=== PATIENT | female | born 1930 | race Caucasian/White ===

== ENCOUNTER 2020-04-10 10:11 | Inpatient (IN) | payer MEDICARE, BC ==
[2020-04-10] MEDS ORDERED: Sodium Chloride 0.9% 10 ML Syringe FLUSH PRN (10:21)
--- NOTE | 2020-04-10 10:42 | CT ---
Head CT Technique: Multiple axial sections through the brain were obtained. Intravenous contrast was not utilized. Comparison: No prior intracranial imaging is available. Findings: Ventricles along with basal cisterns and sulci over the convexities are mildly prominent. Diminished density is noted within the periventricular and subcortical white matter which is felt to represent small vessel ischemic demyelination change. Minimal basal ganglia calcification is seen. No other abnormal parenchymal densities are seen. No evidence of intracranial hemorrhage. No midline shift or mass effect is seen. Atherosclerotic calcification is seen within the carotid siphon. Nothing acute is seen within the visualized paranasal sinuses. Visualized mastoid sinuses also show nothing acute. No acute calvarial abnormality is appreciated. Impression: 1. Senescent change as noted above. 2. Nothing acute is appreciated on noncontrast head CT exam. Diagnostic code #2 Study was dictated in MDT
--- NOTE | 2020-04-10 10:44 | EDM.PDOC ---
ED HPI GENERAL MEDICAL PROBLEM - General Chief Complaint: Neuro Symptoms/Deficits Stated Complaint: AMBULANCE Time Seen by Provider: 04/10/20 10:21 Source of Information: Reports: Patient, EMS, Family History Limitations: Reports: No Limitations - History of Present Illness INITIAL COMMENTS - FREE TEXT/NARRATIVE: The patient presents by [facility] for a fall. The patient was found by a neighbor laying face down on the floor this morning. She called 911 for help. Her last time known well was 9:30am yesterday. She has abrasions to her face, left shoulder, knees and buttocks. She says she does not hurt anywhere. She has no headache, chest pain, or abdominal pain. She has no fever, chills, cough, congestion or runny nose. She does admit to having some shortness of breath but her oxygen saturations are good at 96%. She has no hip pain. She says she had trouble getting out of her chair and fell to the ground. She did not hit her head or hurt her neck. Her daughter came into the room and she said her mother has trouble getting around even with a walker. This was just a matter of time. Onset: Sudden Duration: Day(s): (yesterday at 9:30am) Improves with: Reports: None Worsens with: Reports: None Associated Symptoms: Reports: Shortness of Breath. Denies: Chest Pain, Cough, Fever/Chills, Headaches, Nausea/Vomiting - Related Data Allergies Allergy/AdvReac Type Severity Reaction Status Date / Time meperidine HCl [From Demerol] Allergy Other Verified 04/10/20 10:34 Home Meds: Home Meds Bilberry 100 mg PO DAILY 09/18/15 [History] Cranberry 500 mg PO DAILY 09/18/15 [History] Lactobacillus Acidophilus [Acidophilus] 1 cap PO DAILY 09/18/15 [History] Meloxicam 7.5 mg PO DAILY #10 tablet 09/18/15 [Rx] Vitamin E 400 units PO DAILY 09/18/15 [History] ED ROS GENERAL - Review of Systems Review Of Systems: See Below Constitutional: Reports: No Symptoms HEENT: Reports: Other (abrasions to her chin) Respiratory: Reports: Shortness of Breath. Denies: Cough Cardiovascular: Reports: No Symptoms Endocrine: Reports: No Symptoms GI/Abdominal: Reports: No Symptoms : Reports: No Symptoms Musculoskeletal: Reports: Other (abrasions to her left shoulder and knees) ED EXAM, NEURO - Physical Exam Exam: See Below Exam Limited By: No Limitations General Appearance: Alert, No Apparent Distress Ears: Normal External Exam Nose: Normal Inspection Head Exam: Other (abrasions to her chin) Neck: Normal Inspection, Supple, Non-Tender Respiratory/Chest: No Respiratory Distress, Lungs Clear, Normal Breath Sounds Cardiovascular: Regular Rate, Rhythm, No Edema, No Murmur GI/Abdominal: Soft, Non-Tender, No Organomegaly, No Mass Neurological: Alert, Oriented x 3, Other (Generalized weakness and possible mild weakness to her left arm and leg) EKG INTERPRETATION EKG Date: 04/10/20 Time: 11:28 Rhythm: NSR Rate (Beats/Min): 91 [place]: Normal P-Wave: Present QRS: Normal ST-T: Normal QT: Normal Course - Vital Signs Last Recorded V/S: Last Vital Signs Temp 98.3 F 04/10/20 10:23 Pulse 98 04/10/20 10:23 Resp 18 04/10/20 10:23 BP 136/73 04/10/20 10:23 Pulse Ox 98 04/10/20 10:23 - Orders/Labs/Meds Orders: Active Orders 24 hr Category Date Time Status Cardiac Monitoring [RC] . DIRECTED Care 04/10/20 10:21 Active EKG Documentation Completion [RC] STAT Care 04/10/20 10:22 Active Peripheral IV Care [RC] . DIRECTED Care 04/10/20 10:22 Active Urinary Catheter Assessment [RC] ASDIRECTED Care 04/10/20 11:57 Active Urinary Catheter Insertion [Insert Urinary Catheter] [ Care 04/10/20 11:50 Ordered OM.PC] Stat CORONAVIRUS COVID-19 PCR PHL Stat Lab 04/10/20 10:39 Ordered Sodium Chloride 0.9% [Normal Saline] 1,000 ml Med 04/10/20 10:30 Active IV .BOLUS Sodium Chloride 0.9% [Saline Flush] Med 04/10/20 10:21 Active 10 ml FLUSH ASDIRECTED PRN Peripheral IV Insertion Adult [OM.PC] Stat Oth 04/10/20 10:21 Ordered Medication Orders Sodium Chloride (Normal Saline) 1,000 mls @ 1,000 mls/hr IV .BOLUS MELANIA Last Admin: 04/10/20 11:08 Dose: 1,000 mls/hr Documented by: LORETTA Sodium Chloride (Saline Flush) 10 ml FLUSH ASDIRECTED PRN PRN Reason: Keep Vein Open Last Admin: 04/10/20 11:08 Dose: 10 ml Documented by: LORETTA Labs: Laboratory Tests 04/10/20 04/10/20 04/10/20 Range/Units 10:19 10:55 10:55 WBC 20.55 H (3.98-10.04) K/mm3 RBC 4.57 (3.98-5.22) M/mm3 Hgb 13.4 (11.2-15.7) gm/dl Hct 41.2 (34.1-44.9) % MCV 90.2 (79.4-94.8) fl MCH 29.3 (25.6-32.2) pg MCHC 32.5 (32.2-35.5) g/dl RDW Std Deviation 48.3 H (36.4-46.3) fL Plt Count 47 L (182-369) K/mm3 MPV TNP Neut % (Auto) 87.6 H (34.0-71.1) % Lymph % (Auto) 3.3 L (19.3-51.7) % Graham % (Auto) 8.8 (4.7-12.5) % Eos % (Auto) 0 L (0.7-5.8) Baso % (Auto) 0.1 (0.1-1.2) % Neut # (Auto) 18.00 H (1.56-6.13) K/mm3 Lymph # (Auto) 0.68 L (1.18-3.74) K/mm3 Graham # (Auto) 1.80 H (0.24-0.36) K/mm3 Eos # (Auto) 0.00 L (0.04-0.36) K/mm3 Baso # (Auto) 0.02 (0.01-0.08) K/mm3 Manual Slide Review Abnormal smear Sodium 143 (136-145) mEq/L Potassium 3.8 (3.5-5.1) mEq/L Chloride 106 (98-107) mEq/L Carbon Dioxide 23 (21-32) mEq/L Anion Gap 17.8 H (5-15) BUN 26 H (7-18) mg/dL Creatinine 1.5 H (0.55-1.02) mg/dL Est Cr Clr Drug Dosing 20.11 mL/min Estimated GFR (MDRD) 33 (>60) mL/min BUN/Creatinine Ratio 17.3 (14-18) Glucose 141 H (83-115) mg/dL POC Glucose 147 H (83-110) mg/dL Calcium 10.1 (8.5-10.1) mg/dL Total Bilirubin 0.7 (0.2-1.0) mg/dL AST 85 H (15-37) U/L ALT 43 (14-59) U/L Alkaline Phosphatase 88 (46-116) U/L Creatine Kinase (26-192) U/L Troponin I 0.191 H* (0.00-0.056) ng/mL Total Protein 7.6 (6.4-8.2) g/dl Albumin 3.6 (3.4-5.0) g/dl Globulin 4.0 gm/dL Albumin/Globulin Ratio 0.9 L (1-2) Urine Color (Yellow) Urine Appearance (Clear) Urine pH (5.0-8.0) Ur Specific [place] (1.005-1.030) Urine Protein (Negative) Urine Glucose (UA) (Negative) Urine Ketones (Negative) Urine Occult Blood (Negative) Urine Nitrite (Negative) Urine Bilirubin (Negative) Urine Urobilinogen (0.2-1.0) Ur Leukocyte Esterase (Negative) U Hyaline Cast (Auto) (0-5) /lpf Urine RBC (0-5) /hpf Urine WBC (0-5) /hpf Ur Squamous Epith Cells (0-5) /hpf Urine Bacteria (FEW) /hpf Urine Mucus (FEW) /hpf 04/10/20 04/10/20 04/10/20 Range/Units 10:55 11:47 13:45 WBC (3.98-10.04) K/mm3 RBC (3.98-5.22) M/mm3 Hgb (11.2-15.7) gm/dl Hct (34.1-44.9) % MCV (79.4-94.8) fl MCH (25.6-32.2) pg MCHC (32.2-35.5) g/dl RDW Std Deviation (36.4-46.3) fL Plt Count (182-369) K/mm3 MPV Neut % (Auto) (34.0-71.1) % Lymph % (Auto) (19.3-51.7) % Graham % (Auto) (4.7-12.5) % Eos % (Auto) (0.7-5.8) Baso % (Auto) (0.1-1.2) % Neut # (Auto) (1.56-6.13) K/mm3 Lymph # (Auto) (1.18-3.74) K/mm3 [place] # (Auto) (0.24-0.36) K/mm3 Eos # (Auto) (0.04-0.36) K/mm3 Baso # (Auto) (0.01-0.08) K/mm3 Manual Slide Review Sodium (136-145) mEq/L Potassium (3.5-5.1) mEq/L Chloride (98-107) mEq/L Carbon Dioxide (21-32) mEq/L Anion Gap (5-15) BUN (7-18) mg/dL Creatinine (0.55-1.02) mg/dL Est Cr Clr Drug Dosing mL/min Estimated GFR (MDRD) (>60) mL/min BUN/Creatinine Ratio (14-18) Glucose (83-115) mg/dL POC Glucose (83-110) mg/dL Calcium (8.5-10.1) mg/dL Total Bilirubin (0.2-1.0) mg/dL AST (15-37) U/L ALT (14-59) U/L Alkaline Phosphatase (46-116) U/L Creatine Kinase 2357 H (26-192) U/L Troponin I 0.195 H* (0.00-0.056) ng/mL Total Protein (6.4-8.2) g/dl Albumin (3.4-5.0) g/dl Globulin gm/dL Albumin/Globulin Ratio (1-2) Urine Color Yellow (Yellow) Urine Appearance Clear (Clear) Urine pH 5.5 (5.0-8.0) Ur Specific [place] > or = 1.030 (1.005-1.030) Urine Protein 1+ H (Negative) Urine Glucose (UA) Negative (Negative) Urine Ketones 2+ H (Negative) Urine Occult Blood Negative (Negative) Urine Nitrite Negative (Negative) Urine Bilirubin Negative (Negative) Urine Urobilinogen 0.2 (0.2-1.0) Ur Leukocyte Esterase Negative (Negative) U Hyaline Cast (Auto) 5-10 H (0-5) /lpf Urine RBC Not seen (0-5) /hpf Urine WBC 0-5 (0-5) /hpf Ur Squamous Epith Cells 0-5 (0-5) /hpf Urine Bacteria Few (FEW) /hpf Urine Mucus Few (FEW) /hpf Meds: Medications Generic Name Dose Route Start Last Admin Trade Name Freq PRN Reason Stop Dose Admin Sodium Chloride 1,000 mls @ 1,000 mls/hr 04/10/20 10:30 04/10/20 11:08 Normal Saline IV 1,000 mls/hr .BOLUS MELANIA Administration Sodium Chloride 10 ml 04/10/20 10:21 04/10/20 11:08 Saline Flush FLUSH 10 ml ASDIRECTED PRN Administration Keep Vein Open - Re-Assessments/Exams Free Text/Narrative Re-Assessment/Exam: 04/10/20 10:47 A stroke alert was called. Her last time known well was 9:30am yesterday. I ordered a CT of her head, EKG, labs and UA. 04/10/20 12:20 Her EKG shows a NSR with no acute changes. Her CT shows senescent change. Nothing acute is appreciated on noncontrast head CT exam. Her WBC was elevated at 20.55. Her anion gap was elevated 17.8. Her creatinine is elevated at 1.5. Her glucose is elevated at 141. Her troponin was elevated at 0.191. Her UA shows no UTI. I feel she needs to be admitted. I called Dr Chairez and he wanted me to recheck a troponin at 3 hours and if it goes up we will call cardiology. If it goes down we will keep her here. I have ordered a CXR because she has been bringing up some phlegm but not coughing. I will also give her some food after a swallow study. 04/10/20 14:14 Her repeat troponin was relatively the same at 0.195. Her CK was also elevated at 2357. I called Dr Chairez and he agreed to the admission. Departure - Departure Time of Disposition: 14:20 Disposition: Admitted As Inpatient 66 Condition: Good Clinical Impression: Failure to thrive in adult, Generalized weakness, Elevated troponin, Multiple abrasions Fall Qualifiers: Encounter type: initial encounter Qualified Code(s): W19.XXXA - Unspecified fall, initial encounter Rhabdomyolysis Qualifiers: Rhabdomyolysis type: traumatic Encounter type: initial encounter Qualified Code(s): T79.6XXA - Traumatic ischemia of muscle, initial encounter - Discharge Information Referrals: PCP,None [Ordering Only Provider] - Forms: ED Department Discharge Sepsis Event Note (ED) - Evaluation Sepsis Screening Result: No Definite Risk - Focused Exam Vital Signs: Vital Signs Temp Pulse Resp BP Pulse Ox 04/10/20 10:23 98.3 F 98 18 136/73 98 - My Orders Last 24 Hours: My Active Orders 04/10/20 10:21 Cardiac Monitoring [RC] . DIRECTED Sodium Chloride 0.9% [Saline Flush] 10 ml FLUSH ASDIRECTED PRN Peripheral IV Insertion Adult [OM.PC] Stat 04/10/20 10:22 EKG Documentation Completion [RC] STAT Peripheral IV Care [RC] . DIRECTED 04/10/20 10:30 Sodium Chloride 0.9% [Normal Saline] 1,000 ml IV .BOLUS 04/10/20 10:39 CORONAVIRUS COVID-19 PCR PHL Stat 04/10/20 11:50 Urinary Catheter Insertion [Insert Urinary Catheter] [OM.PC] Stat 04/10/20 11:57 Urinary Catheter Assessment [RC] ASDIRECTED - Assessment/Plan Last 24 Hours: My Active Orders 04/10/20 10:21 Cardiac Monitoring [RC] . DIRECTED Sodium Chloride 0.9% [Saline Flush] 10 ml FLUSH ASDIRECTED PRN Peripheral IV Insertion Adult [OM.PC] Stat 04/10/20 10:22 EKG Documentation Completion [RC] STAT Peripheral IV Care [RC] . DIRECTED 04/10/20 10:30 Sodium Chloride 0.9% [Normal Saline] 1,000 ml IV .BOLUS 04/10/20 10:39 CORONAVIRUS COVID-19 PCR PHL Stat 04/10/20 11:50 Urinary Catheter Insertion [Insert Urinary Catheter] [OM.PC] Stat 04/10/20 11:57 Urinary Catheter Assessment [RC] ASDIRECTED
[2020-04-10] MEDS: Sodium Chloride 0.9% 1,000 ML IV SCH ×3 (11:08→18:02)
--- NOTE | 2020-04-10 13:16 | CR ---
Chest: AP view of the chest was obtained. Comparison: No previous chest imaging is available. Heart size and mediastinum are normal. Lungs are clear with no acute parenchymal change. Prior right shoulder surgery is noted. Mild scoliosis is present within the spine. Impression: 1. Nothing acute is seen on AP chest x-ray. Diagnostic code #2 Study was dictated in MDT
[2020-04-10] MEDS ORDERED: Ondansetron 4 MG/2 ML SDV IV PRN (17:35)
--- NOTE | 2020-04-10 17:57 | PCM.HP.2 ---
H&P History of Present Illness - General Date of Service: 04/10/20 Admit Problem/Dx: Admission Diagnosis/Problem Admission Diagnosis/Problem Failure to thrive - History of Present Illness Initial Comments - Free Text/Narative: 89-year-old female who lives alone was found by a neighbor lying face down the floor this morning. Patient is a poor historian and family was not available when I interviewed the patient so most of the history was obtained through the emergency department physician, nursing, and the patient. Patient's last known well was at 9:30 AM yesterday morning. Patient states that she slid off of her recliner and did not actually fall. Her face/chin, left shoulder, knees, and buttocks had abrasions and bruising to her left wrist. Patient tells me she has no pain at this time. She was brought into the EMS after her neighbor called 911. On arrival to the emergency department oxygen saturations were 96%, and she denied hitting her head. Patient had a CT scan of her head and chest x-ray which were both without acute findings. Daughter does state that she has some limitations in her memory and recall. Patient denies any fever, chills, chest pain, shortness of breath, nausea, or vomiting. In the emergency department vital signs were relatively normal with a blood pressure of 136/73, pulse of 98, temperature 98.3, respiratory rate of 18, pulse ox of 98%. Patient was found to have abrasions to her chin and generalized weakness and possible mild weakness to her left arm and leg. A stroke alert was called. EKG showed normal sinus rhythm with ventricular rate of 91 bpm with no significant abnormalities. Labs in the emergency department: White count 20.55 with 87.6% neutrophils and no bands, peripheral smear showed normal red blood cells with leukocytosis and low platelets, hemoglobin 13.4, platelet count 47. Sodium was 143, potassium of 3.8, anion gap 17.8, BUN 26, creatinine 1.5 with estimated GFR 33. Initial troponin was 0.191 with a repeat of 0.195. AST was 85, ALT 43, alkaline phosphatase 88. CK 2357, UA negative occult blood and no red blood cells. Nega tive WBC. COVID negative. Patient was given 1 L of normal saline then transferred to the floor. - Related Data Allergies/Adverse Reactions: Allergies Allergy/AdvReac Type Severity Reaction Status Date / Time meperidine HCl [From Demerol] Allergy Other Verified 04/10/20 10:34 Home Medications: Home Meds Vitamin E 400 units PO DAILY 09/18/15 [History] Aspirin [Children's Aspirin] 81 mg PO DAILY 04/10/20 [History] Cyanocobalamin (Vitamin B-12) [B-12] 1,000 mcg PO DAILY 04/10/20 [History] Gabapentin [Neurontin] 300 mg PO DAILY 04/10/20 [History] Ibuprofen [Motrin] 1 tab PO Q4HR PRN 04/10/20 [History] Lysine HCl [l-Lysine] mg PO DAILY 04/10/20 [History] Vit A/Vit C/Vit E/Zinc/Copper [Preservision Areds Softgel] 1 cap PO DAILY 04/10/20 [History] amLODIPine [Norvasc] mg PO DAILY 04/10/20 [History] Past Medical History HEENT History: Reports: Cataract, Hard of Hearing, Impaired Vision, Macular Degeneration Cardiovascular History: Reports: Hypertension [employer]PO[employer]ING [employer] History: Reports: Musculoskeletal History: Reports: Arthritis, Back Pain, Chronic Neurological History: Reports: Migraines Psychiatric History: Reports: Anxiety Hematologic History: Reports: Other (See Below) Other Hematologic History: thrombocytopenia Dermatologic History: Reports: Eczema - Infectious Disease History Infectious Disease History: Reports: Chicken Pox - Past Surgical History HEENT Surgical History: Reports: Cataract Surgery, Tonsillectomy Female Surgical History: Reports: Hysterectomy Musculoskeletal Surgical History: Reports: Shoulder Surgery Social & Family History - Family History Family Medical History: Noncontributory - Tobacco Use Smoking Status *Q: Never Smoker - Caffeine Use Caffeine Use: Reports: Coffee Other Caffeine Use: 1 cup a day - Recreational Drug Use Recreational Drug Use: No H&P Review of Systems - Review of Systems: Review Of Systems: Comprehensive ROS is negative, except as noted in HPI. Exam - Exam Exam: See Below - Vital Signs Vital Signs: Last Vital Signs Temp 98.4 F 04/10/20 16:18 Pulse 104 H 04/10/20 16:18 Resp 20 04/10/20 16:18 BP 121/89 04/10/20 16:18 Pulse Ox 97 04/10/20 16:18 Weight: 52.98 kg - Exam General: Alert, Oriented, 4 HEENT: Conjunctiva Clear, Mucosa Moist & [place]. No: Hearing Intact (Hearing loss) Neck: Supple, Trachea Midline, 2 Lungs: Normal Respiratory Effort, Other (Upper airway rhonchi making auscultation difficult). No: Rales, Wheezing Cardiovascular: Regular Rate, Regular Rhythm GI/Abdominal Exam: Normal Bowel Sounds, Soft, Non-Tender, No Organomegaly, No Distention, No Abnormal Bruit Extremities: Normal Inspection, Normal Range of Motion, Non-Tender, No Pedal Edema, Normal Capillary Refill, Other (Bruising to left wrist) Skin: Warm, Dry, Intact, Other (Abrasion to the chin, left shoulder) Neurological: Cranial Nerves Intact, Strength Equal Bilateral (No significant difference but diminished bilaterally slip cover cutter strength) Neuro Extensive - Mental Status: Alert, Normal Mood/Affect, Memory Loss-Recent Events Psychiatric: Alert, Normal Affect, Normal Mood - Patient Data Lab Results Last 24 hrs: Laboratory Results - last 24 hr 04/10/20 04/10/20 04/10/20 Range/Units 10:19 10:55 10:55 WBC 20.55 H (3.98-10.04) K/mm3 RBC 4.57 (3.98-5.22) M/mm3 Hgb 13.4 (11.2-15.7) gm/dl Hct 41.2 (34.1-44.9) % MCV 90.2 (79.4-94.8) fl MCH 29.3 (25.6-32.2) pg MCHC 32.5 (32.2-35.5) g/dl RDW Std Deviation 48.3 H (36.4-46.3) fL Plt Count 47 L (182-369) K/mm3 MPV TNP Neut % (Auto) 87.6 H (34.0-71.1) % Lymph % (Auto) 3.3 L (19.3-51.7) % [place] % (Auto) 8.8 (4.7-12.5) % Eos % (Auto) 0 L (0.7-5.8) Baso % (Auto) 0.1 (0.1-1.2) % Neut # (Auto) 18.00 H (1.56-6.13) K/mm3 Lymph # (Auto) 0.68 L (1.18-3.74) K/mm3 [place] # (Auto) 1.80 H (0.24-0.36) K/mm3 Eos # (Auto) 0.00 L (0.04-0.36) K/mm3 Baso # (Auto) 0.02 (0.01-0.08) K/mm3 Manual Slide Review Abnormal smear Sodium 143 (136-145) mEq/L Potassium 3.8 (3.5-5.1) mEq/L Chloride 106 (98-107) mEq/L Carbon Dioxide 23 (21-32) mEq/L Anion Gap 17.8 H (5-15) BUN 26 H (7-18) mg/dL Creatinine 1.5 H (0.55-1.02) mg/dL Est Cr Clr Drug Dosing 20.11 mL/min Estimated GFR (MDRD) 33 (>60) mL/min BUN/Creatinine Ratio 17.3 (14-18) Glucose 141 H (83-115) mg/dL POC Glucose 147 H (83-110) mg/dL Calcium 10.1 (8.5-10.1) mg/dL Total Bilirubin 0.7 (0.2-1.0) mg/dL AST 85 H (15-37) U/L ALT 43 (14-59) U/L Alkaline Phosphatase 88 (46-116) U/L Creatine Kinase (26-192) U/L Troponin I 0.191 H* (0.00-0.056) ng/mL Total Protein 7.6 (6.4-8.2) g/dl Albumin 3.6 (3.4-5.0) g/dl Globulin 4.0 gm/dL Albumin/Globulin Ratio 0.9 L (1-2) Urine Color (Yellow) Urine Appearance (Clear) Urine pH (5.0-8.0) Ur Specific [place] (1.005-1.030) Urine Protein (Negative) Urine Glucose (UA) (Negative) Urine Ketones (Negative) Urine Occult Blood (Negative) Urine Nitrite (Negative) Urine Bilirubin (Negative) Urine Urobilinogen (0.2-1.0) Ur Leukocyte Esterase (Negative) U Hyaline Cast (Auto) (0-5) /lpf Urine RBC (0-5) /hpf Urine WBC (0-5) /hpf Ur Squamous Epith Cells (0-5) /hpf Urine Bacteria (FEW) /hpf Urine Mucus (FEW) /hpf SARS Virus RNA (PCR) (NEGATIVE) 04/10/20 04/10/20 04/10/20 Range/Units 10:55 11:47 13:45 WBC (3.98-10.04) K/mm3 RBC (3.98-5.22) M/mm3 Hgb (11.2-15.7) gm/dl Hct (34.1-44.9) % MCV (79.4-94.8) fl MCH (25.6-32.2) pg MCHC (32.2-35.5) g/dl RDW Std Deviation (36.4-46.3) fL Plt Count (182-369) K/mm3 MPV Neut % (Auto) (34.0-71.1) % Lymph % (Auto) (19.3-51.7) % [place] % (Auto) (4.7-12.5) % Eos % (Auto) (0.7-5.8) Baso % (Auto) (0.1-1.2) % Neut # (Auto) (1.56-6.13) K/mm3 Lymph # (Auto) (1.18-3.74) K/mm3 [place] # (Auto) (0.24-0.36) K/mm3 Eos # (Auto) (0.04-0.36) K/mm3 Baso # (Auto) (0.01-0.08) K/mm3 Manual Slide Review Sodium (136-145) mEq/L Potassium (3.5-5.1) mEq/L Chloride (98-107) mEq/L Carbon Dioxide (21-32) mEq/L Anion Gap (5-15) BUN (7-18) mg/dL Creatinine (0.55-1.02) mg/dL Est Cr Clr Drug Dosing mL/min Estimated GFR (MDRD) (>60) mL/min BUN/Creatinine Ratio (14-18) Glucose (83-115) mg/dL POC Glucose (83-110) mg/dL Calcium (8.5-10.1) mg/dL Total Bilirubin (0.2-1.0) mg/dL AST (15-37) U/L ALT (14-59) U/L Alkaline Phosphatase (46-116) U/L Creatine Kinase 2357 H (26-192) U/L Troponin I 0.195 H* (0.00-0.056) ng/mL Total Protein (6.4-8.2) g/dl Albumin (3.4-5.0) g/dl Globulin gm/dL Albumin/Globulin Ratio (1-2) Urine Color Yellow (Yellow) Urine Appearance Clear (Clear) Urine pH 5.5 (5.0-8.0) Ur Specific [place] > or = 1.030 (1.005-1.030) Urine Protein 1+ H (Negative) Urine Glucose (UA) Negative (Negative) Urine Ketones 2+ H (Negative) Urine Occult Blood Negative (Negative) Urine Nitrite Negative (Negative) Urine Bilirubin Negative (Negative) Urine Urobilinogen 0.2 (0.2-1.0) Ur Leukocyte Esterase Negative (Negative) U Hyaline Cast (Auto) 5-10 H (0-5) /lpf Urine RBC Not seen (0-5) /hpf Urine WBC 0-5 (0-5) /hpf Ur Squamous Epith Cells 0-5 (0-5) /hpf Urine Bacteria Few (FEW) /hpf Urine Mucus Few (FEW) /hpf SARS Virus RNA (PCR) (NEGATIVE) 04/10/20 Range/Units 14:25 WBC (3.98-10.04) K/mm3 RBC (3.98-5.22) M/mm3 Hgb (11.2-15.7) gm/dl Hct (34.1-44.9) % MCV (79.4-94.8) fl MCH (25.6-32.2) pg MCHC (32.2-35.5) g/dl RDW Std Deviation (36.4-46.3) fL Plt Count (182-369) K/mm3 MPV Neut % (Auto) (34.0-71.1) % Lymph % (Auto) (19.3-51.7) % [place] % (Auto) (4.7-12.5) % Eos % (Auto) (0.7-5.8) Baso % (Auto) (0.1-1.2) % Neut # (Auto) (1.56-6.13) K/mm3 Lymph # (Auto) (1.18-3.74) K/mm3 [place] # (Auto) (0.24-0.36) K/mm3 Eos # (Auto) (0.04-0.36) K/mm3 Baso # (Auto) (0.01-0.08) K/mm3 Manual Slide Review Sodium (136-145) mEq/L Potassium (3.5-5.1) mEq/L Chloride (98-107) mEq/L Carbon Dioxide (21-32) mEq/L Anion Gap (5-15) BUN (7-18) mg/dL Creatinine (0.55-1.02) mg/dL Est Cr Clr Drug Dosing mL/min Estimated GFR (MDRD) (>60) mL/min BUN/Creatinine Ratio (14-18) Glucose (83-115) mg/dL POC Glucose (83-110) mg/dL Calcium (8.5-10.1) mg/dL Total Bilirubin (0.2-1.0) mg/dL AST (15-37) U/L ALT (14-59) U/L Alkaline Phosphatase (46-116) U/L Creatine Kinase (26-192) U/L Troponin I (0.00-0.056) ng/mL Total Protein (6.4-8.2) g/dl Albumin (3.4-5.0) g/dl Globulin gm/dL Albumin/Globulin Ratio (1-2) Urine Color (Yellow) Urine Appearance (Clear) Urine pH (5.0-8.0) Ur Specific [place] (1.005-1.030) Urine Protein (Negative) Urine Glucose (UA) (Negative) Urine Ketones (Negative) Urine Occult Blood (Negative) Urine Nitrite (Negative) Urine Bilirubin (Negative) Urine Urobilinogen (0.2-1.0) Ur Leukocyte Esterase (Negative) U Hyaline Cast (Auto) (0-5) /lpf Urine RBC (0-5) /hpf Urine WBC (0-5) /hpf Ur Squamous Epith Cells (0-5) /hpf Urine Bacteria (FEW) /hpf Urine Mucus (FEW) /hpf SARS Virus RNA (PCR) Negative (NEGATIVE) Result Diagrams: 04/10/20 10:55 04/10/20 10:55 Sepsis Event Note - Evaluation Sepsis Screening Result: No Definite Risk - Focused Exam Vital Signs: Vital Signs Temp Temp Pulse Pulse Resp BP BP 04/10/20 16:18 98.4 F 104 H 20 121/89 04/10/20 10:23 98.3 F 98 18 136/73 Pulse Ox 04/10/20 16:18 97 04/10/20 10:23 98 Date Exam was Performed: 04/10/20 Time Exam was Performed: 17:40 Problem List Initiated/Reviewed/Updated: Yes Orders Last 24hrs: Active Orders 24 hr Category Date Time Status Patient Status [ADT] Routine ADT 04/10/20 15:37 Active Antiembolic Devices [RC] PER UNIT ROUTINE Care 04/10/20 17:39 Ordered Cardiac Monitoring [RC] . DIRECTED Care 04/10/20 10:21 Active EKG Documentation Completion [RC] STAT Care 04/10/20 10:22 Active Oxygen Therapy [RC] PRN Care 04/10/20 17:37 Ordered Peripheral IV Care [RC] . DIRECTED Care 04/10/20 10:22 Active Up With Assistance [RC] ASDIRECTED Care 04/10/20 17:35 Ordered Urinary Catheter Assessment [RC] ASDIRECTED Care 04/10/20 11:57 Active Urinary Catheter Insertion [Insert Urinary Catheter] [ Care 04/10/20 11:50 Ordered OM.PC] Stat VTE/DVT Education [RC] PER UNIT ROUTINE Care 04/10/20 17:37 Ordered Vital Signs [RC] Q4H Care 04/10/20 17:37 Ordered OT Evaluation and Treatment [CONS] Routine Cons 04/10/20 17:35 Ordered PT Evaluation and Treatment [CONS] Routine Cons 04/10/20 17:35 Ordered Soft Diet [DIET] Diet 04/10/20 Dinner Active CBC WITH AUTO DIFF [HEME] AM Lab 04/11/20 05:11 Ordered COMPREHENSIVE METABOLIC PN,CMP [CHEM] AM Lab 04/11/20 05:11 Ordered CREATINE KINASE,CK [CHEM] AM Lab 04/11/20 05:11 Ordered D Dimer [D-DIMER QUANTITATIVE] [COAG] Stat Lab 04/10/20 13:45 Received FIBRINOGEN [COAG] Stat Lab 04/10/20 13:45 Received INR,PT,PROTHROMBIN TIME [COAG] Stat Lab 04/10/20 13:45 Received LACTATE DEHYDROGENASE,LDH [CHEM] Stat Lab 04/10/20 13:45 Received MAGNESIUM [CHEM] AM Lab 04/11/20 05:11 Ordered PHOSPHORUS [CHEM] AM Lab 04/11/20 05:11 Ordered PTT,PARTIAL THROMBOPLSTIN TIME [COAG] Stat Lab 04/10/20 13:45 Received Acetaminophen [Tylenol] Med 04/10/20 17:35 Ordered 650 mg PO Q4H PRN Docusate Sodium/Sennosides [Senna Plus] Med 04/10/20 17:35 Ordered 1 tab PO BID PRN Ondansetron [Zofran] Med 04/10/20 17:35 Ordered 4 mg IV Q4H PRN Sodium Chloride 0.9% [Normal Saline] 1,000 ml Med 04/10/20 10:30 Active IV .BOLUS Sodium Chloride 0.9% [Normal Saline] 1,000 ml Med 04/10/20 17:45 Ordered IV ASDIRECTED Sodium Chloride 0.9% [Saline Flush] Med 04/10/20 10:21 Active 10 ml FLUSH ASDIRECTED PRN Peripheral IV Insertion Adult [OM.PC] Stat Oth 04/10/20 10:21 Ordered Sequential Compression Device [OM.PC] Per Unit Routine Oth 04/10/20 17:37 Ordered Code Status [Resuscitation Status] Routine Resus Stat 04/10/20 17:27 Ordered Medication Orders Sodium Chloride (Normal Saline) 1,000 mls @ 1,000 mls/hr IV .BOLUS MELANIA Last Admin: 04/10/20 11:08 Dose: 1,000 mls/hr Documented by: LORETTA Sodium Chloride (Saline Flush) 10 ml FLUSH ASDIRECTED PRN PRN Reason: Keep Vein Open Last Admin: 04/10/20 11:08 Dose: 10 ml Documented by: LORETTA Assessment/Plan Comment:: Rhabdomyolysis secondary to immobilization from lying on the floor for unknown time Acute kidney injury Failure to thrive Thrombocytopenia, chronic * Patient was found on the ground at her home for unknown time but up to 24 hours. * Patient has known difficulty with ambulation and getting around at home * She has weakness on exam * Creatinine kinase 2357 * Troponin 0 0.191 and 0.195 * Urine negative for myoglobin * Received 1 L saline in the emergency department Plan * Admit to medical floor * Normal saline at 100 mL an hour * PT/OT * PT, APTT, d-dimer, LDH, fibrinogen * CBC, CMP, mag, [facility] in the morning Elevated troponin * No significant ST-T wave changes on EKG * Likely secondary to prolonged immobilization and strain * This still puts her at increased risk for mortality Plan * Repeat troponin * No anticoagulation secondary to fall and thrombocytopenia * Repeat EKG in the morning or if troponin is positive Hypertension * Unknown which medications she is currently on * Blood pressure well controlled on presentation with blood pressure of 136/73 and a repeat blood pressure of 121/89 Plan * Monitor blood pressure * Reconcile meds. Chronic back pain * This is likely worsening ambulation and function Plan * PT and OT VTE prophylaxis with SCDs secondary to chemoprophylaxis contraindicated secondary to thrombocytopenia CODE STATUS: DNR/DNI Disposition admit to medical floor. Patient will likely need assisted living or other living arrangements then living alone. - Mortality Measure Prognosis:: Good
[2020-04-10] MEDS: Acetaminophen 325 MG Tab PO PRN (20:54)
[2020-04-11] MEDS: Sodium Chloride 0.9% 1,000 ML IV SCH ×2 (03:29→13:19)
[2020-04-11] MEDS ORDERED: Potassium Chloride 20 MEQ Tab.ER PO ONE (07:39)
[2020-04-11] MEDS ORDERED: Magnesium Sulfate/Water 2 GM in Premix Bag 1 BAG IV ONE (10:30)
--- NOTE | 2020-04-11 14:28 | PCM.PN ---
- General Info Date of Service: 04/11/20 Admission Dx/Problem (Free Text): Admission Diagnosis/Problem Admission Diagnosis/Problem Failure to thrive Subjective Update: Patient states that she is doing well. She denies any pain. Patient has a history of thrombocytopenia. I spoke with the on-call provider for her provider Mary Villa NP and her last September 2019 her platelets were 28,000 and in November 2019 they were 39,000. Functional Status: Reports: Pain Controlled - Review of Systems General: Reports: No Symptoms HEENT: Reports: No Symptoms Pulmonary: Reports: No Symptoms Cardiovascular: Reports: No Symptoms Gastrointestinal: Reports: No Symptoms Musculoskeletal: Reports: No Symptoms Neurological: Reports: No Symptoms Psychiatric: Reports: No Symptoms - Patient Data Vitals - Most Recent: Last Vital Signs Temp 98.1 F 04/11/20 08:43 Pulse 97 04/11/20 08:43 Resp 16 04/11/20 08:43 BP 137/64 04/11/20 08:43 Pulse Ox 94 L 04/11/20 08:43 Weight - Most Recent: 55.066 kg I&O - Last 24 Hours: Intake & Output 04/10/20 04/11/20 04/11/20 22:59 06:59 14:59 Intake Total 240 1113 120 Output Total 600 Balance 240 513 120 Lab Results Last 24 Hours: Laboratory Results - last 24 hr 04/10/20 04/10/20 04/10/20 Range/Units 13:45 13:45 14:25 WBC (3.98-10.04) K/mm3 RBC (3.98-5.22) M/mm3 Hgb (11.2-15.7) gm/dl Hct (34.1-44.9) % MCV (79.4-94.8) fl MCH (25.6-32.2) pg MCHC (32.2-35.5) g/dl RDW Std Deviation (36.4-46.3) fL Plt Count (182-369) K/mm3 Neut % (Auto) (34.0-71.1) % Lymph % (Auto) (19.3-51.7) % [place] % (Auto) (4.7-12.5) % Eos % (Auto) (0.7-5.8) Baso % (Auto) (0.1-1.2) % Neut # (Auto) (1.56-6.13) K/mm3 Lymph # (Auto) (1.18-3.74) K/mm3 [place] # (Auto) (0.24-0.36) K/mm3 Eos # (Auto) (0.04-0.36) K/mm3 Baso # (Auto) (0.01-0.08) K/mm3 Neutrophils % (Manual) (40-60) % Band Neutrophils % (0-10) % Lymphocytes % (Manual) (20-40) % Atypical Lymphs % % Monocytes % (Manual) (2-10) % Eosinophils % (Manual) (0.7-5.8) % Basophils % (Manual) (0.1-1.2) Manual Slide Review Toxic Granulation Platelet Estimate Plt Morphology Comment Hypochromasia RBC Morph Comment PT 10.9 (9.7-12.0) SECONDS INR 1.00 APTT 24 (22-31) SECONDS Fibrinogen 424 (187-446) mg/dL D-Dimer, Quantitative 1.14 H (0.19-0.50) mg/L Sodium (136-145) mEq/L Potassium (3.5-5.1) mEq/L Chloride (98-107) mEq/L Carbon Dioxide (21-32) mEq/L Anion Gap (5-15) BUN (7-18) mg/dL Creatinine (0.55-1.02) mg/dL Est Cr Clr Drug Dosing mL/min Estimated GFR (MDRD) (>60) mL/min BUN/Creatinine Ratio (14-18) Glucose (83-115) mg/dL Calcium (8.5-10.1) mg/dL Phosphorus (2.6-4.7) mg/dL Magnesium (1.8-2.4) mg/dl Total Bilirubin (0.2-1.0) mg/dL AST (15-37) U/L ALT (14-59) U/L Alkaline Phosphatase (46-116) U/L Lactate Dehydrogenase 428 H (81-234) U/L Creatine Kinase (26-192) U/L Troponin I (0.00-0.056) ng/mL Total Protein (6.4-8.2) g/dl Albumin (3.4-5.0) g/dl Globulin gm/dL Albumin/Globulin Ratio (1-2) Vitamin B12 (193-986) pg/ml Folate (8.6-58.9) ng/mL TSH 3rd Generation (0.358-3.74) uIU/mL Hepatitis C Antibody (NEGATIVE) SARS Virus RNA (PCR) Negative (NEGATIVE) 04/10/20 04/11/20 04/11/20 Range/Units 18:40 05:07 05:07 WBC 20.37 H (3.98-10.04) K/mm3 RBC 3.86 L (3.98-5.22) M/mm3 Hgb 11.4 D (11.2-15.7) gm/dl Hct 35.1 (34.1-44.9) % MCV 90.9 (79.4-94.8) fl MCH 29.5 (25.6-32.2) pg MCHC 32.5 (32.2-35.5) g/dl RDW Std Deviation 49.1 H (36.4-46.3) fL Plt Count 16 L* (182-369) K/mm3 Neut % (Auto) 85.1 H (34.0-71.1) % Lymph % (Auto) 6.3 L (19.3-51.7) % [place] % (Auto) 8.2 (4.7-12.5) % Eos % (Auto) 0 L (0.7-5.8) Baso % (Auto) 0.1 (0.1-1.2) % Neut # (Auto) 17.33 H (1.56-6.13) K/mm3 Lymph # (Auto) 1.28 (1.18-3.74) K/mm3 [place] # (Auto) 1.67 H (0.24-0.36) K/mm3 Eos # (Auto) 0.01 L (0.04-0.36) K/mm3 Baso # (Auto) 0.02 (0.01-0.08) K/mm3 Neutrophils % (Manual) (40-60) % Band Neutrophils % (0-10) % Lymphocytes % (Manual) (20-40) % Atypical Lymphs % % Monocytes % (Manual) (2-10) % Eosinophils % (Manual) (0.7-5.8) % Basophils % (Manual) (0.1-1.2) Manual Slide Review Abnormal smear Toxic Granulation Platelet Estimate Plt Morphology Comment Hypochromasia RBC Morph Comment PT (9.7-12.0) SECONDS INR APTT (22-31) SECONDS Fibrinogen (187-446) mg/dL D-Dimer, Quantitative (0.19-0.50) mg/L Sodium 144 (136-145) mEq/L Potassium 3.2 L (3.5-5.1) mEq/L Chloride 109 H (98-107) mEq/L Carbon Dioxide 23 (21-32) mEq/L Anion Gap 15.2 H (5-15) BUN 22 H (7-18) mg/dL Creatinine 0.8 (0.55-1.02) mg/dL Est Cr Clr Drug Dosing 39.44 mL/min Estimated GFR (MDRD) > 60 (>60) mL/min BUN/Creatinine Ratio 27.5 H (14-18) Glucose 111 (83-115) mg/dL Calcium 8.7 (8.5-10.1) mg/dL Phosphorus 2.0 L (2.6-4.7) mg/dL Magnesium 1.7 L (1.8-2.4) mg/dl Total Bilirubin 0.7 (0.2-1.0) mg/dL AST 98 H (15-37) U/L ALT 50 (14-59) U/L Alkaline Phosphatase 67 (46-116) U/L Lactate Dehydrogenase (81-234) U/L Creatine Kinase 1955 H (26-192) U/L Troponin I 0.222 H* (0.00-0.056) ng/mL Total Protein 6.4 (6.4-8.2) g/dl Albumin 3.0 L (3.4-5.0) g/dl Globulin 3.4 gm/dL Albumin/Globulin Ratio 0.9 L (1-2) Vitamin B12 (193-986) pg/ml Folate (8.6-58.9) ng/mL TSH 3rd Generation (0.358-3.74) uIU/mL Hepatitis C Antibody (NEGATIVE) SARS Virus RNA (PCR) (NEGATIVE) 04/11/20 04/11/20 04/11/20 Range/Units 05:07 12:09 12:09 WBC 21.79 H (3.98-10.04) K/mm3 RBC 3.98 (3.98-5.22) M/mm3 Hgb 11.7 (11.2-15.7) gm/dl Hct 36.0 (34.1-44.9) % MCV 90.5 (79.4-94.8) fl MCH 29.4 (25.6-32.2) pg MCHC 32.5 (32.2-35.5) g/dl RDW Std Deviation 48.5 H (36.4-46.3) fL Plt Count 19 L* (182-369) K/mm3 Neut % (Auto) (34.0-71.1) % Lymph % (Auto) (19.3-51.7) % [place] % (Auto) (4.7-12.5) % Eos % (Auto) (0.7-5.8) Baso % (Auto) (0.1-1.2) % Neut # (Auto) (1.56-6.13) K/mm3 Lymph # (Auto) (1.18-3.74) K/mm3 [place] # (Auto) (0.24-0.36) K/mm3 Eos # (Auto) (0.04-0.36) K/mm3 Baso # (Auto) (0.01-0.08) K/mm3 Neutrophils % (Manual) 92 H (40-60) % Band Neutrophils % 0 (0-10) % Lymphocytes % (Manual) 3 L (20-40) % Atypical Lymphs % 0 % Monocytes % (Manual) 5 (2-10) % Eosinophils % (Manual) 0 L (0.7-5.8) % Basophils % (Manual) 0 L (0.1-1.2) Manual Slide Review Toxic Granulation Platelet Estimate Marked dec Plt Morphology Comment Normal Hypochromasia 1+ slight RBC Morph Comment Normal PT (9.7-12.0) SECONDS INR APTT (22-31) SECONDS Fibrinogen (187-446) mg/dL D-Dimer, Quantitative (0.19-0.50) mg/L Sodium (136-145) mEq/L Potassium (3.5-5.1) mEq/L Chloride (98-107) mEq/L Carbon Dioxide (21-32) mEq/L Anion Gap (5-15) BUN (7-18) mg/dL Creatinine (0.55-1.02) mg/dL Est Cr Clr Drug Dosing mL/min Estimated GFR (MDRD) (>60) mL/min BUN/Creatinine Ratio (14-18) Glucose (83-115) mg/dL Calcium (8.5-10.1) mg/dL Phosphorus (2.6-4.7) mg/dL Magnesium (1.8-2.4) mg/dl Total Bilirubin (0.2-1.0) mg/dL AST (15-37) U/L ALT (14-59) U/L Alkaline Phosphatase (46-116) U/L Lactate Dehydrogenase (81-234) U/L Creatine Kinase (26-192) U/L Troponin I 0.191 H* (0.00-0.056) ng/mL Total Protein (6.4-8.2) g/dl Albumin (3.4-5.0) g/dl Globulin gm/dL Albumin/Globulin Ratio (1-2) Vitamin B12 (193-986) pg/ml Folate (8.6-58.9) ng/mL TSH 3rd Generation (0.358-3.74) uIU/mL Hepatitis C Antibody Negative (NEGATIVE) SARS Virus RNA (PCR) (NEGATIVE) 04/11/20 04/11/20 Range/Units 12:09 12:09 WBC (3.98-10.04) K/mm3 RBC (3.98-5.22) M/mm3 Hgb (11.2-15.7) gm/dl Hct (34.1-44.9) % MCV (79.4-94.8) fl MCH (25.6-32.2) pg MCHC (32.2-35.5) g/dl RDW Std Deviation (36.4-46.3) fL Plt Count (182-369) K/mm3 Neut % (Auto) (34.0-71.1) % Lymph % (Auto) (19.3-51.7) % [place] % (Auto) (4.7-12.5) % Eos % (Auto) (0.7-5.8) Baso % (Auto) (0.1-1.2) % Neut # (Auto) (1.56-6.13) K/mm3 Lymph # (Auto) (1.18-3.74) K/mm3 [place] # (Auto) (0.24-0.36) K/mm3 Eos # (Auto) (0.04-0.36) K/mm3 Baso # (Auto) (0.01-0.08) K/mm3 Neutrophils % (Manual) (40-60) % Band Neutrophils % (0-10) % Lymphocytes % (Manual) (20-40) % Atypical Lymphs % % Monocytes % (Manual) (2-10) % Eosinophils % (Manual) (0.7-5.8) % Basophils % (Manual) (0.1-1.2) Manual Slide Review Toxic Granulation Platelet Estimate Plt Morphology Comment Hypochromasia RBC Morph Comment PT (9.7-12.0) SECONDS INR APTT (22-31) SECONDS Fibrinogen (187-446) mg/dL D-Dimer, Quantitative (0.19-0.50) mg/L Sodium (136-145) mEq/L Potassium (3.5-5.1) mEq/L Chloride (98-107) mEq/L Carbon Dioxide (21-32) mEq/L Anion Gap (5-15) BUN (7-18) mg/dL Creatinine (0.55-1.02) mg/dL Est Cr Clr Drug Dosing mL/min Estimated GFR (MDRD) (>60) mL/min BUN/Creatinine Ratio (14-18) Glucose (83-115) mg/dL Calcium (8.5-10.1) mg/dL Phosphorus (2.6-4.7) mg/dL Magnesium (1.8-2.4) mg/dl Total Bilirubin (0.2-1.0) mg/dL AST (15-37) U/L ALT (14-59) U/L Alkaline Phosphatase (46-116) U/L Lactate Dehydrogenase (81-234) U/L Creatine Kinase (26-192) U/L Troponin I (0.00-0.056) ng/mL Total Protein (6.4-8.2) g/dl Albumin (3.4-5.0) g/dl Globulin gm/dL Albumin/Globulin Ratio (1-2) Vitamin B12 1988 H (193-986) pg/ml Folate 17.9 (8.6-58.9) ng/mL TSH 3rd Generation 6.732 H (0.358-3.74) uIU/mL Hepatitis C Antibody (NEGATIVE) SARS Virus RNA (PCR) (NEGATIVE) Med Orders - Current: Current Medications Acetaminophen (Tylenol) 650 mg PO Q4H PRN PRN Reason: Pain (Mild 1-3)/fever Last Admin: 04/10/20 20:54 Dose: 650 mg Documented by: Amlodipine Besylate (Norvasc) 5 mg PO DAILY MELANIA Cyanocobalamin (Vitamin B12) 1,000 mcg PO DAILY MELANIA Gabapentin (Neurontin) 300 mg PO TID MELANIA Sodium Chloride (Normal Saline) 1,000 mls @ 100 mls/hr IV ASDIRECTED MELANIA Last Admin: 04/11/20 13:19 Dose: 100 mls/hr Documented by: Ondansetron HCl (Zofran) 4 mg IV Q4H PRN PRN Reason: Nausea/Vomiting Senna/Docusate Sodium (Senna Plus) 1 tab PO BID PRN PRN Reason: Constipation Sodium Chloride (Saline Flush) 10 ml FLUSH ASDIRECTED PRN PRN Reason: Keep Vein Open Last Admin: 04/10/20 11:08 Dose: 10 ml Documented by: Discontinued Medications Sodium Chloride (Normal Saline) 1,000 mls @ 1,000 mls/hr IV .[facility] Last Infusion: 04/10/20 12:08 Dose: Infused Documented by: Magnesium Sulfate 2 gm/ Premix 50 mls @ 25 mls/hr IV ONETIME ONE Stop: 04/11/20 12:29 Last Admin: 04/11/20 10:55 Dose: 25 mls/hr Documented by: Potassium Chloride (Klor-Con M20) 40 meq PO ONETIME ONE Stop: 04/11/20 07:40 Last Admin: 04/11/20 08:40 Dose: 40 meq Documented by: - Exam General: Alert, Oriented HEENT: Pupils Equal, Mucous Membr. Moist/[place] Neck: Supple Lungs: Clear to Auscultation, Normal Respiratory Effort Cardiovascular: Regular Rate, Regular Rhythm GI/Abdominal Exam: Normal Bowel Sounds, Soft, Non-Tender, No Organomegaly, No Distention, No Abnormal Bruit Extremities: Normal Inspection, Normal Range of Motion, Non-Tender, No Pedal Edema, Normal Capillary Refill Skin: Warm, Dry, Intact Psy/Mental Status: Alert, Normal Affect, Normal Mood Sepsis Event Note - Evaluation Sepsis Screening Result: No Definite Risk - Focused Exam Vital Signs: Vital Signs Temp Pulse Resp BP Pulse Ox 04/11/20 08:43 98.1 F 97 16 137/64 94 L 04/11/20 04:04 98.6 F 108 H 17 134/63 98 Date Exam was Performed: 04/11/20 Time Exam was Performed: 15:00 - Problem List Review Problem List Initiated/Reviewed/Updated: Yes - My Orders Last 24 Hours: My Active Orders 04/10/20 Dinner Soft Diet [DIET] 04/10/20 17:27 Code Status [Resuscitation Status] Routine 04/10/20 17:35 Up With Assistance [RC] ASDIRECTED OT Evaluation and Treatment [CONS] Routine PT Evaluation and Treatment [CONS] Routine Acetaminophen [Tylenol] 650 mg PO Q4H PRN Docusate Sodium/Sennosides [Senna Plus] 1 tab PO BID PRN Ondansetron [Zofran] 4 mg IV Q4H PRN 04/10/20 17:37 Oxygen Therapy [RC] PRN VTE/DVT Education [RC] PER UNIT ROUTINE Vital Signs [RC] Q4HR Sequential Compression Device [OM.PC] Per Unit Routine 04/10/20 17:39 Antiembolic Devices [RC] PER UNIT ROUTINE 04/10/20 17:45 Sodium Chloride 0.9% [Normal Saline] 1,000 ml IV ASDIRECTED 04/10/20 19:16 EKG Documentation Completion [RC] ASDIRECTED EKG 12 Lead [EK] Stat 04/11/20 07:39 Communication Order [RC] ROUTINE 04/11/20 12:09 MULU W/REFLEX [REF] Routine 04/11/20 13:57 T4 FREE [CHEM] Routine 04/11/20 15:00 Gabapentin [Neurontin] 300 mg PO TID 04/12/20 05:11 CBC WITH AUTO DIFF [HEME] AM CMP [COMPREHENSIVE METABOLIC PN,CMP] [CHEM] AM CREATINE KINASE,CK [CHEM] AM MAGNESIUM [CHEM] AM PHOSPHORUS [CHEM] AM 04/12/20 09:00 Cyanocobalamin (Vitamin B12) [Vitamin B12] 1,000 mcg PO DAILY amLODIPine [Norvasc] 5 mg PO DAILY - Assessment Assessment:: Rhabdomyolysis secondary to immobilization from lying on the floor for unknown time Acute kidney injury Failure to thrive Admission * Patient was found on the ground at her home for unknown time but up to 24 hours. * Patient has known difficulty with ambulation and getting around at home * She has weakness on exam * Creatinine kinase 2357 * Troponin 0 0.191 and 0.195 * Urine negative for myoglobin * Received 1 L saline in the emergency department 04/11/2020 * Patient denies any significant pain. * Physical therapy evaluated her today and felt she is not appropriate to go home. * Creatinine kinase 1994 * Troponin stable at 0.191 * Continues on IV fluids * Creatinine decreased to 0.8. BUN decreased to 22. Thrombocytopenia, chronic 04/11/2020 * Platelets decreased to 16,000 today * She has no active bleeding. * No known work-up of her thrombocytopenia. * Platelets on September 2019 was 28,000 and November 2019 39,000 * Recheck at noon today platelets were 19,000. Elevated troponin Admission * No significant ST-T wave changes on EKG * Likely secondary to prolonged immobilization and strain * This still puts her at increased risk for mortality 04/11/2020 * Troponin stable this morning at 0.191. * EKG no significant change Hypertension Admission * Unknown which medications she is currently on * Blood pressure well controlled on presentation with blood pressure of 136/73 and a repeat blood pressure of 121/89 04/11/2020 * Blood pressure continues to be stable on home meds Hypomagnesemia/hypophosphatemia 04/11/2020 * Magnesium 1.7 * Phosphorus 2.0 - Plan Plan:: Rhabdomyolysis secondary to immobilization from lying on the floor for unknown time Acute kidney injury Failure to thrive Thrombocytopenia, chronic * Normal saline at 100 mL an hour * PT/OT * CBC, CMP, mag, phosphorus in the morning * Follow platelets closely * If patient develops active bleeding will start platelet transfusion * Get vitamin B12, folic acid, MULU, TSH Elevated troponin * Troponin stable * No anticoagulation secondary to fall and thrombocytopenia * At increased risk for mortality Hypertension * Monitor blood pressure * Continue home meds Hypomagnesemia/hypophosphatemia * Magnesium 2 g IV and repeat Tiffany in the morning VTE prophylaxis with SCDs secondary to chemoprophylaxis contraindicated secondary to thrombocytopenia CODE STATUS: DNR/DNI Disposition admit to medical floor. Patient will likely need assisted living or other living arrangements then living alone.
[2020-04-11] MEDS: Gabapentin 300 MG Cap PO SCH ×3 (15:03→20:39)
[2020-04-12] MEDS: Sodium Chloride 0.9% 1,000 ML IV SCH (00:47)
[2020-04-12] MEDS: Acetaminophen 325 MG Tab PO PRN ×2 (03:49→08:46)
--- NOTE | 2020-04-12 06:20 | CT ---
CT facial bones Technique: Multiple axial sections through the facial bones were obtained. Comparison: No prior facial bone study. Findings: Paranasal sinuses show nothing acute. Soft tissue hematoma is again noted within the frontal scalp on the right side. No facial bone fracture is appreciated. Impression: 1. Soft tissue hematoma within the right frontal scalp. 2. Nothing acute is otherwise seen on CT study the facial bones. Diagnostic code #2 I agree with preliminary report issued by [facility] ([facility] preliminary report dictated on 04/12/20, 1:29 AM Central Daylight Time) Study was dictated in MDT
--- NOTE | 2020-04-12 06:20 | CT ---
Head CT Technique: Multiple axial sections to the brain were obtained. Intravenous contrast was not utilized. Soft tissue hematoma is noted within the frontal scalp. Comparison: Prior head CT study of 04/10/28. Findings: Ventricles along with basal cisterns and sulci over the convexities are mildly prominent. Diminished density is noted within portions of the periventricular and subcortical white matter which is compatible with small vessel ischemic demyelination change. Minimal basal ganglia calcification is noted on the left side. 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 No evidence of intracranial hemorrhage. No midline shift or mass effect is seen. Mild atherosclerotic change is noted within the carotid siphon. Visualized paranasal sinuses and mastoid sinuses showed nothing acute. No acute calvarial finding is seen. Impression: 1. Senescent change. No acute intracranial abnormality is appreciated. Diagnostic code #2 I agree with preliminary report issued by [facility] ([facility] preliminary report dictated on 04/12/20, 1:33 AM Central Daylight Time) Study was dictated in MDT
[2020-04-12] MEDS ORDERED: Potassium Chloride 20 MEQ Tab.ER PO ONE (07:56)
[2020-04-12] MEDS: amLODIPine 5 MG Tab PO SCH (08:46)
[2020-04-12] MEDS: Gabapentin 300 MG Cap PO SCH ×3 (08:46→21:33)
[2020-04-12] MEDS ORDERED: Cyanocobalamin (Vitamin B12) 1,000 MCG Tab PO SCH (09:00)
[2020-04-12] MEDS ORDERED: Sodium Chloride 0.9% 250 ML IV SCH (12:00)
--- NOTE | 2020-04-12 12:23 | US ---
Abdominal ultrasound: Multiple real-time images of the abdomen were obtained. Comparison: No prior abdominal imaging is available. Technologist's note: Difficult due to patient position, unable to roll Liver contains no focal parenchymal abnormality. Gallbladder shows no shadowing gallstones. No gallbladder wall thickening or biliary duct dilatation is seen. Right kidney shows a renal pelvis which is most likely normal variant. Left kidney shows an ill-defined cystic lesion within the lower pole measuring 3.9 cm. Right kidney length is 9.5 cm and left kidney length is 9.3 cm. Aorta shows no aneurysm. Atherosclerotic plaque is noted within the distal aorta. Pancreas not seen due to bowel gas. Inferior vena cava is patent. Main portal vein shows hepatopedal flow. Impression: 1. Cystic structure within the lower pole of the left kidney measuring 3.9 cm. 2. Slightly dilated right renal pelvis believed to represent a normal variant. 3. Nonvisualized pancreas. 4. No additional abnormality is definitely appreciated. Diagnostic code #2 This report was dictated in MDT
--- NOTE | 2020-04-12 14:01 | PCM.PN ---
- General Info Date of Service: 04/12/20 Admission Dx/Problem (Free Text): Admission Diagnosis/Problem Admission Diagnosis/Problem Failure to thrive Subjective Update: Patient fell out of bed last night at approximately 2300 hrs. She fell on left side of her head and face. CT scan of the head and facial bones showed Soft tissue hematoma within the right frontal scalp and no acute intracranial abnormality appreciated. Patient has been more lethargic today than earlier. She has significant bruising on the right side of her face. A small laceration to her forehead that was treated with Steri-Strips. Functional Status: Reports: Pain Controlled - Review of Systems General: Reports: Weakness, Fatigue HEENT: Denies: Headaches Pulmonary: Reports: No Symptoms Cardiovascular: Reports: No Symptoms Gastrointestinal: Reports: No Symptoms Musculoskeletal: Reports: No Symptoms Neurological: Reports: Confusion. Denies: Headache - Patient Data Vitals - Most Recent: Last Vital Signs Temp 98.9 F 04/12/20 13:33 Pulse 80 04/12/20 13:33 Resp 16 04/12/20 13:33 BP 117/53 L 04/12/20 13:33 Pulse Ox 97 04/12/20 13:33 Weight - Most Recent: 53.116 kg I&O - Last 24 Hours: Intake & Output 04/11/20 04/12/20 04/12/20 22:59 06:59 14:59 Intake Total 2180 1172 0 Output Total 650 250 Balance 1530 922 0 Imaging Impressions - Last 24 Hours: Abdominal ultrasound impression: 1. Cystic structure within the lower pole of the left kidney measuring 3.9 cm. 2. Slightly dilated right renal pelvis believed to represent a normal variant. 3. Nonvisualized pancreas. 4. No additional abnormality is definitely appreciated. Liver contains no focal parenchymal abnormality. CT head without contrast 1. Senescent change. No acute intracranial abnormality is appreciated. CT face/sinuses 1. Soft tissue hematoma within the right frontal scalp. 2. Nothing acute is otherwise seen on CT study of the facial bones. Lab Results Last 24 Hours: Laboratory Results - last 24 hr 04/11/20 04/12/20 04/12/20 Range/Units 12:09 05:35 05:35 WBC 15.74 H (3.98-10.04) K/mm3 RBC 3.47 L (3.98-5.22) M/mm3 Hgb 10.0 L D (11.2-15.7) gm/dl Hct 31.9 L (34.1-44.9) % MCV 91.9 (79.4-94.8) fl MCH 28.8 (25.6-32.2) pg MCHC 31.3 L (32.2-35.5) g/dl RDW Std Deviation 49.1 H (36.4-46.3) fL Plt Count 15 L* (182-369) K/mm3 Neut % (Auto) 84.9 H (34.0-71.1) % Lymph % (Auto) 6.2 L (19.3-51.7) % Dewitt % (Auto) 8.3 (4.7-12.5) % Eos % (Auto) 0.1 L (0.7-5.8) Baso % (Auto) 0.1 (0.1-1.2) % Neut # (Auto) 13.38 H (1.56-6.13) K/mm3 Lymph # (Auto) 0.97 L (1.18-3.74) K/mm3 Dewitt # (Auto) 1.30 H (0.24-0.36) K/mm3 Eos # (Auto) 0.01 L (0.04-0.36) K/mm3 Baso # (Auto) 0.02 (0.01-0.08) K/mm3 Manual Slide Review Abnormal smear PT (9.7-12.0) SECONDS INR APTT (22-31) SECONDS Fibrin Degrad Products (<5) ug/mL Sodium 143 (136-145) mEq/L Potassium 3.4 L (3.5-5.1) mEq/L Chloride 109 H (98-107) mEq/L Carbon Dioxide 25 (21-32) mEq/L Anion Gap 12.4 (5-15) BUN 13 (7-18) mg/dL Creatinine 0.8 (0.55-1.02) mg/dL Est Cr Clr Drug Dosing 39.42 mL/min Estimated GFR (MDRD) > 60 (>60) mL/min BUN/Creatinine Ratio 16.3 (14-18) Glucose 102 (83-115) mg/dL Calcium 7.5 L (8.5-10.1) mg/dL Phosphorus 2.0 L (2.6-4.7) mg/dL Magnesium 1.9 (1.8-2.4) mg/dl Total Bilirubin 0.7 (0.2-1.0) mg/dL AST 63 H (15-37) U/L ALT 50 (14-59) U/L Alkaline Phosphatase 61 (46-116) U/L Creatine Kinase 697 H (26-192) U/L Total Protein 5.7 L (6.4-8.2) g/dl Albumin 2.6 L (3.4-5.0) g/dl Globulin 3.1 gm/dL Albumin/Globulin Ratio 0.8 L (1-2) Free T4 0.86 (0.76-1.46) ng/dL Blood Type 04/12/20 04/12/20 04/12/20 Range/Units 05:35 05:35 10:40 WBC (3.98-10.04) K/mm3 RBC (3.98-5.22) M/mm3 Hgb (11.2-15.7) gm/dl Hct (34.1-44.9) % MCV (79.4-94.8) fl MCH (25.6-32.2) pg MCHC (32.2-35.5) g/dl RDW Std Deviation (36.4-46.3) fL Plt Count (182-369) K/mm3 Neut % (Auto) (34.0-71.1) % Lymph % (Auto) (19.3-51.7) % Dewitt % (Auto) (4.7-12.5) % Eos % (Auto) (0.7-5.8) Baso % (Auto) (0.1-1.2) % Neut # (Auto) (1.56-6.13) K/mm3 Lymph # (Auto) (1.18-3.74) K/mm3 Dewitt # (Auto) (0.24-0.36) K/mm3 Eos # (Auto) (0.04-0.36) K/mm3 Baso # (Auto) (0.01-0.08) K/mm3 Manual Slide Review PT 11.0 (9.7-12.0) SECONDS INR 1.01 APTT 24 (22-31) SECONDS Fibrin Degrad Products > 20 ug/ml H (<5) ug/mL Sodium (136-145) mEq/L Potassium (3.5-5.1) mEq/L Chloride (98-107) mEq/L Carbon Dioxide (21-32) mEq/L Anion Gap (5-15) BUN (7-18) mg/dL Creatinine (0.55-1.02) mg/dL Est Cr Clr Drug Dosing mL/min Estimated GFR (MDRD) (>60) mL/min BUN/Creatinine Ratio (14-18) Glucose (83-115) mg/dL Calcium (8.5-10.1) mg/dL Phosphorus (2.6-4.7) mg/dL Magnesium (1.8-2.4) mg/dl Total Bilirubin (0.2-1.0) mg/dL AST (15-37) U/L ALT (14-59) U/L Alkaline Phosphatase (46-116) U/L Creatine Kinase (26-192) U/L Total Protein (6.4-8.2) g/dl Albumin (3.4-5.0) g/dl Globulin gm/dL Albumin/Globulin Ratio (1-2) Free T4 (0.76-1.46) ng/dL Blood Type A POSITIVE Med Orders - Current: Current Medications Acetaminophen (Tylenol) 650 mg PO Q4H PRN PRN Reason: Pain (Mild 1-3)/fever Last Admin: 04/12/20 08:46 Dose: 650 mg Documented by: Amlodipine Besylate (Norvasc) 5 mg PO DAILY [facility] Last Admin: 04/12/20 08:46 Dose: 5 mg Documented by: Gabapentin (Neurontin) 300 mg PO TID [facility] Last Admin: 04/12/20 08:46 Dose: 300 mg Documented by: Sodium Chloride (Normal Saline) 250 mls @ 50 mls/hr IV ASDIRECTED [facility] Stop: 04/12/20 18:00 Last Admin: 04/12/20 13:22 Dose: 50 mls/hr Documented by: Ondansetron HCl (Zofran) 4 mg IV Q4H PRN PRN Reason: Nausea/Vomiting Senna/Docusate Sodium (Senna Plus) 1 tab PO BID PRN PRN Reason: Constipation Last Admin: 04/12/20 05:47 Dose: 1 tab Documented by: Sodium Chloride (Saline Flush) 10 ml FLUSH ASDIRECTED PRN PRN Reason: Keep Vein Open Last Admin: 04/10/20 11:08 Dose: 10 ml Documented by: Discontinued Medications Cyanocobalamin (Vitamin B12) 1,000 mcg PO DAILY [facility] Last Admin: 04/12/20 08:46 Dose: 1,000 mcg Documented by: Sodium Chloride (Normal Saline) 1,000 mls @ 1,000 mls/hr IV .BOLUS [facility] Last Infusion: 04/10/20 12:08 Dose: Infused Documented by: Sodium Chloride (Normal Saline) 1,000 mls @ 100 mls/hr IV ASDIRECTED [facility] Last Admin: 04/12/20 00:47 Dose: 100 mls/hr Documented by: Magnesium Sulfate 2 gm/ Premix 50 mls @ 25 mls/hr IV ONETIME ONE Stop: 04/11/20 12:29 Last Admin: 04/11/20 10:55 Dose: 25 mls/hr Documented by: Potassium Chloride (Klor-Con M20) 40 meq PO ONETIME ONE Stop: 04/11/20 07:40 Last Admin: 04/11/20 08:40 Dose: 40 meq Documented by: Potassium Chloride (Klor-Con M20) 20 meq PO ONETIME ONE Stop: 04/12/20 07:57 Last Admin: 04/12/20 08:47 Dose: 20 meq Documented by: - Exam Quality Assessment: Supplemental Oxygen General: Lethargic HEENT: Pupils Equal, Pupils Reactive, Other (Right eye is black and blue along the eyelid and forehead. It is mostly closed shut secondary to swelling. Small laceration midline forehead treated with Steri-Strips. Bruising of the chin.) Neck: Supple Lungs: Clear to Auscultation, Normal Respiratory Effort Cardiovascular: Regular Rate, Regular Rhythm GI/Abdominal Exam: Normal Bowel Sounds, Soft, Non-Tender, No Organomegaly, No Distention, No Abnormal Bruit Extremities: No Pedal Edema, Normal Capillary Refill Peripheral Pulses: 1+: Posterior Tibial (L), Posterior Tibial (R), Dorsalis Pedis (L), Dorsalis Pedis (R) Skin: Ecchymosis (Face, left wrist,) Neurological: No: Normal Speech Sepsis Event Note - Evaluation Sepsis Screening Result: No Definite Risk - Focused Exam Vital Signs: Vital Signs Temp Pulse Pulse Resp BP BP Pulse Ox 04/12/20 13:33 98.9 F 80 16 117/53 L 97 04/12/20 13:18 98.1 F 77 16 122/76 95 04/12/20 13:16 98.1 F 77 16 122/76 95 04/12/20 13:05 97.9 F 82 20 123/51 L 97 04/12/20 08:46 136/64 04/12/20 07:25 98.4 F 85 24 H 136/64 97 04/12/20 04:00 97.5 F 98 18 156/71 H 96 Date Exam was Performed: 04/12/20 Time Exam was Performed: 17:22 - Problem List Review Problem List Initiated/Reviewed/Updated: Yes - My Orders Last 24 Hours: My Active Orders 04/11/20 15:00 Gabapentin [Neurontin] 300 mg PO TID 04/12/20 07:55 Convert IV to Saline Lock [OM.PC] Routine 04/12/20 08:30 Transfuse Platelets [COMM] Urgent 04/12/20 08:55 CBC WITH MANUAL DIFF [HEME] Stat 04/12/20 09:00 amLODIPine [Norvasc] 5 mg PO DAILY 04/12/20 Lunch NPO Now [Nothing per Oral Now Diet] [DIET] 04/12/20 12:00 Sodium Chloride 0.9% [Normal Saline] 250 ml IV ASDIRECTED 04/13/20 05:11 BASIC METABOLIC PANEL,BMP [CHEM] AM MAGNESIUM [CHEM] AM PHOSPHORUS [CHEM] AM - Assessment Assessment:: Rhabdomyolysis secondary to immobilization from lying on the floor for unknown time Acute kidney injury -resolved Failure to thrive Admission * Patient was found on the ground at her home for unknown time but up to 24 hours. * Patient has known difficulty with ambulation and getting around at home * She has weakness on exam * Creatinine kinase 2357 * Troponin 0 0.191 and 0.195 * Urine negative for myoglobin * Received 1 L saline in the emergency department 04/11/2020 * Patient denies any significant pain. * Physical therapy evaluated her today and felt she is not appropriate to go home. * Creatinine kinase 1994 * Troponin stable at 0.191 * Continues on IV fluids * Creatinine decreased to 0.8. BUN decreased to 22. 04/12/2020 * Creatinine kinase down to 697 * Acute kidney injury resolved * Creatinine 0.8, estimated GFR greater than 60 Thrombocytopenia, chronic 04/11/2020 * Platelets decreased to 16,000 today * She has no active bleeding. * No known work-up of her thrombocytopenia. * Platelets on September 2019 was 28,000 and November 2019 39,000 * Recheck at noon today platelets were 19,000. 04/12/2020 * Platelets down to 15,000 today * No active bleeding even after falling out of bed * Spoke with Dr. Jose Casanova clinical advisor and oncologist at [facility] who recommended giving 1 unit of packed red blood cells and rechecking platelets 30 to 45 minutes after to make sure platelets increase appropriately. He also recommended abdominal ultrasound which found a cystic structure within the lower pole of the left kidney measuring 3.9 cm. * Dr. Buenrostro recommends MRI to determine if the cyst malignant. * Fibrin degradation products done today and were elevated. This raises the possibility of chronic DIC. Elevated troponin Admission * No significant ST-T wave changes on EKG * Likely secondary to prolonged immobilization and strain * This still puts her at increased risk for mortality 04/11/2020 * Troponin stable this morning at 0.191. * EKG no significant change 04/12/2020 * No chest pain. No significant changes. Hypertension Admission * Unknown which medications she is currently on * Blood pressure well controlled on presentation with blood pressure of 136/73 and a repeat blood pressure of 121/89 04/11/2020 * Blood pressure continues to be stable on home meds Hypomagnesemia/hypophosphatemia 04/11/2020 * Magnesium 1.7 * Phosphorus 2.0 04/12/2020 * Potassium 3.4 * Phosphorus 2.0 Closed head injury after falling out of bed last night * CT of the head and facial bones showed no intracranial bleed or fracture - Plan Plan:: Rhabdomyolysis secondary to immobilization from lying on the floor for unknown time Acute kidney injury Failure to thrive Closed head injury from falling out of bed * No significant neurological changes. Continue to monitor * PT/OT * CBC, CMP, mag, phosphorus in the morning * Follow platelets closely * Stop IV fluids Thrombocytopenia, chronic * 1 unit platelets given and platelet count came up to 50,000 at 30 to 45 minutes after transfusion. * Ultrasound of the abdomen showed no abnormality of the liver, but could not visualize spleen * Fibrin degradation products elevated * Repeat platelets in the morning Elevated troponin * Troponin stable * No anticoagulation secondary to fall and thrombocytopenia * At increased risk for mortality Hypertension * Monitor blood pressure * Continue home meds Hypomagnesemia/hypophosphatemia * Continue to monitor Cystic structure within left kidney measuring 3.9 cm * Family considering further evaluation of cystic structure if she stabilizes. * Discuss again with family tomorrow. VTE prophylaxis with SCDs secondary to chemoprophylaxis contraindicated secondary to thrombocytopenia CODE STATUS: DNR/DNI Disposition admit to medical floor. Patient will likely need assisted living or other living arrangements then living alone.
[2020-04-13] MEDS ORDERED: Carboxymethylcellulose Sodium 1% Ophth Gel 15 ML Bottle EYEBOTH PRN (07:00)
--- NOTE | 2020-04-13 07:24 | PCM.PN ---
- General Info Date of Service: 04/13/20 Admission Dx/Problem (Free Text): Admission Diagnosis/Problem Admission Diagnosis/Problem Failure to thrive Subjective Update: Reports pain on shoulder and chin - abrasion noted on left shoulder and bruising noted to chin Last BM yesterday Reports she slept OK. No other patient concerns Functional Status: Reports: Pain Controlled, Tolerating Diet, Ambulating, Urinating. Denies: New Symptoms - Review of Systems General: Reports: No Symptoms, Weakness, Fatigue. Denies: Fever, Malaise, Chills HEENT: Denies: Headaches, Sore Throat Pulmonary: Reports: No Symptoms. Denies: Shortness of Breath, Cough, Sputum, Wheezing Cardiovascular: Reports: No Symptoms. Denies: Chest Pain, Palpitations Gastrointestinal: Reports: No Symptoms. Denies: Abdominal Pain, Constipation, Diarrhea, Nausea, Vomiting Genitourinary: Reports: No Symptoms. Denies: Pain Musculoskeletal: Reports: Shoulder Pain (left - abrasion noted ) Skin: Reports: Bruising (scattered ) Neurological: Reports: Confusion, Difficulty Walking, Weakness, Gait Disturbance Psychiatric: Reports: No Symptoms - Patient Data Vitals - Most Recent: Last Vital Signs Temp 98.4 F 04/13/20 04:08 Pulse 72 04/13/20 04:08 Resp 16 04/13/20 04:08 BP 136/88 04/13/20 04:08 Pulse Ox 95 04/13/20 04:08 Weight - Most Recent: 115 lb I&O - Last 24 Hours: Intake & Output 04/12/20 04/13/20 04/13/20 22:59 06:59 14:59 Intake Total 1340 200 Output Total 500 300 Balance 840 -100 Lab Results Last 24 Hours: Laboratory Results - last 24 hr 04/12/20 04/12/20 04/12/20 Range/Units 05:35 05:35 05:35 WBC (3.98-10.04) K/mm3 RBC (3.98-5.22) M/mm3 Hgb (11.2-15.7) gm/dl Hct (34.1-44.9) % MCV (79.4-94.8) fl MCH (25.6-32.2) pg MCHC (32.2-35.5) g/dl RDW Std Deviation (36.4-46.3) fL Plt Count (182-369) K/mm3 MPV (9.4-12.3) fl Neutrophils % (Manual) (40-60) % Band Neutrophils % (0-10) % Lymphocytes % (Manual) (20-40) % Atypical Lymphs % % Monocytes % (Manual) (2-10) % Eosinophils % (Manual) (0.7-5.8) % Basophils % (Manual) (0.1-1.2) Manual Slide Review Abnormal smear Platelet Estimate Poikilocytosis Anisocytosis Schistocytes RBC Morph Comment PT 11.0 (9.7-12.0) SECONDS INR 1.01 APTT 24 (22-31) SECONDS Fibrin Degrad Products (<5) ug/mL Sodium (136-145) mEq/L Potassium (3.5-5.1) mEq/L Chloride (98-107) mEq/L Carbon Dioxide (21-32) mEq/L Anion Gap (5-15) BUN (7-18) mg/dL Creatinine (0.55-1.02) mg/dL Est Cr Clr Drug Dosing mL/min Estimated GFR (MDRD) (>60) mL/min BUN/Creatinine Ratio (14-18) Glucose (83-115) mg/dL Calcium (8.5-10.1) mg/dL Phosphorus (2.6-4.7) mg/dL Magnesium (1.8-2.4) mg/dl Blood Type A POSITIVE 04/12/20 04/12/20 04/13/20 Range/Units 10:40 15:37 05:15 WBC 13.40 H (3.98-10.04) K/mm3 RBC 3.45 L (3.98-5.22) M/mm3 Hgb 10.1 L (11.2-15.7) gm/dl Hct 31.6 L (34.1-44.9) % MCV 91.6 (79.4-94.8) fl MCH 29.3 (25.6-32.2) pg MCHC 32.0 L (32.2-35.5) g/dl RDW Std Deviation 48.6 H (36.4-46.3) fL Plt Count 50 L (182-369) K/mm3 MPV 11.2 (9.4-12.3) fl Neutrophils % (Manual) 80 H (40-60) % Band Neutrophils % 0 (0-10) % Lymphocytes % (Manual) 10 L (20-40) % Atypical Lymphs % 0 % Monocytes % (Manual) 9 (2-10) % Eosinophils % (Manual) 1 (0.7-5.8) % Basophils % (Manual) 0 L (0.1-1.2) Manual Slide Review Platelet Estimate Decreased Poikilocytosis 1+ slight Anisocytosis 1+ slight Schistocytes 3+ marked RBC Morph Comment Not Reportable PT (9.7-12.0) SECONDS INR APTT (22-31) SECONDS Fibrin Degrad Products > 20 ug/ml H (<5) ug/mL Sodium 144 (136-145) mEq/L Potassium 3.3 L (3.5-5.1) mEq/L Chloride 108 H (98-107) mEq/L Carbon Dioxide 28 (21-32) mEq/L Anion Gap 11.3 (5-15) BUN 10 (7-18) mg/dL Creatinine 0.7 (0.55-1.02) mg/dL Est Cr Clr Drug Dosing 44.87 mL/min Estimated GFR (MDRD) > 60 (>60) mL/min BUN/Creatinine Ratio 14.3 (14-18) Glucose 100 (83-115) mg/dL Calcium 7.9 L (8.5-10.1) mg/dL Phosphorus 1.9 L (2.6-4.7) mg/dL Magnesium 2.0 (1.8-2.4) mg/dl Blood Type Med Orders - Current: Current Medications Acetaminophen (Tylenol) 650 mg PO Q4H PRN PRN Reason: Pain (Mild 1-3)/fever Last Admin: 04/12/20 08:46 Dose: 650 mg Documented by: Amlodipine Besylate (Norvasc) 5 mg PO DAILY [facility] Last Admin: 04/12/20 08:46 Dose: 5 mg Documented by: Artificial Tears (Refresh Liquigel 1%) 0 ml EYEBOTH ASDIRECTED PRN PRN Reason: Dry Eyes Gabapentin (Neurontin) 300 mg PO TID [facility] Last Admin: 04/12/20 21:33 Dose: 300 mg Documented by: Ondansetron HCl (Zofran) 4 mg IV Q4H PRN PRN Reason: Nausea/Vomiting Senna/Docusate Sodium (Senna Plus) 1 tab PO BID PRN PRN Reason: Constipation Last Admin: 04/12/20 05:47 Dose: 1 tab Documented by: Sodium Chloride (Saline Flush) 10 ml FLUSH ASDIRECTED PRN PRN Reason: Keep Vein Open Last Admin: 04/10/20 11:08 Dose: 10 ml Documented by: Discontinued Medications Cyanocobalamin (Vitamin B12) 1,000 mcg PO DAILY [facility] Last Admin: 04/12/20 08:46 Dose: 1,000 mcg Documented by: Sodium Chloride (Normal Saline) 1,000 mls @ 1,000 mls/hr IV .BOLUS [facility] Last Infusion: 04/10/20 12:08 Dose: Infused Documented by: Sodium Chloride (Normal Saline) 1,000 mls @ 100 mls/hr IV ASDIRECTED [facility] Last Admin: 04/12/20 00:47 Dose: 100 mls/hr Documented by: Magnesium Sulfate 2 gm/ Premix 50 mls @ 25 mls/hr IV ONETIME ONE Stop: 04/11/20 12:29 Last Admin: 04/11/20 10:55 Dose: 25 mls/hr Documented by: Sodium Chloride (Normal Saline) 250 mls @ 50 mls/hr IV ASDIRECTED [facility] Stop: 04/12/20 18:00 Last Admin: 04/12/20 13:22 Dose: 50 mls/hr Documented by: Potassium Chloride (Klor-Con M20) 40 meq PO ONETIME ONE Stop: 04/11/20 07:40 Last Admin: 04/11/20 08:40 Dose: 40 meq Documented by: Potassium Chloride (Klor-Con M20) 20 meq PO ONETIME ONE Stop: 04/12/20 07:57 Last Admin: 04/12/20 08:47 Dose: 20 meq Documented by: - Exam Quality Assessment: DVT Prophylaxis General: Alert, Oriented (mostly ), Cooperative, No Acute Distress HEENT: Pupils Equal, Pupils Reactive, Other (Bilateral ecchymosis around eyes and chin. Steri-strips on bridge of nose ) Neck: Supple, Trachea Midline Lungs: Clear to Auscultation, Normal Respiratory Effort Cardiovascular: Regular Rate, Regular Rhythm GI/Abdominal Exam: Normal Bowel Sounds, Soft, Non-Tender, No Distention (Female) Exam: Deferred Back Exam: Normal Inspection, Decreased Range of Motion Extremities: Non-Tender, Limited Range of Motion, Other (Scattered ecchymosis - especially to hands ) Skin: Warm, Dry, Intact, Ecchymosis (Scattered ) Wound/Incisions: No: Erythema Neurological: No New Focal Deficit Psy/Mental Status: Alert, Normal Affect, Normal Mood Sepsis Event Note - Evaluation Sepsis Screening Result: No Definite Risk - Focused Exam Vital Signs: Vital Signs Temp Pulse Resp BP Pulse Ox 04/13/20 04:08 98.4 F 72 16 136/88 95 04/13/20 00:28 97.7 F 83 16 138/63 95 04/12/20 20:09 100.0 F 88 16 154/64 H 96 Date Exam was Performed: 04/13/20 Time Exam was Performed: 13:32 - Problem List & Annotations (1) Thrombocytopenia SNOMED Code(s): 633846121 Code(s): D69.6 - THROMBOCYTOPENIA, UNSPECIFIED Status: Acute Current Visit: Yes (2) Closed head injury SNOMED Code(s): 973740155416 Code(s): S09.90XA - UNSPECIFIED INJURY OF HEAD, INITIAL ENCOUNTER Status: Acute Current Visit: Yes (3) Hypomagnesemia SNOMED Code(s): 857013275 Code(s): E83.42 - HYPOMAGNESEMIA Status: Acute Current Visit: Yes (4) Hypophosphatemia SNOMED Code(s): 5828381 Code(s): E83.39 - OTHER DISORDERS OF PHOSPHORUS METABOLISM Status: Acute Current Visit: Yes (5) Hypokalemia SNOMED Code(s): 57840062 Code(s): E87.6 - HYPOKALEMIA Status: Acute Current Visit: Yes (6) Elevated troponin SNOMED Code(s): 268223403, 648998645, 931917683 Code(s): R79.89 - OTHER SPECIFIED ABNORMAL FINDINGS OF BLOOD CHEMISTRY Status: Acute Current Visit: Yes (7) Failure to thrive in adult SNOMED Code(s): 518313753 Code(s): R62.7 - ADULT FAILURE TO THRIVE Status: Acute Current Visit: Yes (8) Fall SNOMED Code(s): 2863890, 409042582 Code(s): W19.XXXA - UNSPECIFIED FALL, INITIAL ENCOUNTER Status: Acute Current Visit: Yes Qualifiers: Encounter type: initial encounter Qualified Code(s): W19.XXXA - Unspecified fall, initial encounter (9) Generalized weakness SNOMED Code(s): 91072338 Code(s): R53.1 - WEAKNESS Status: Acute Current Visit: Yes (10) Multiple abrasions SNOMED Code(s): 835732325, 222194865 Code(s): T07.XXXA - UNSPECIFIED MULTIPLE INJURIES, INITIAL ENCOUNTER Status: Acute Current Visit: Yes (11) Rhabdomyolysis SNOMED Code(s): 316489768 Code(s): M62.82 - RHABDOMYOLYSIS Status: Acute Current Visit: Yes Qualifiers: Rhabdomyolysis type: traumatic Encounter type: initial encounter Qualified Code(s): T79.6XXA - Traumatic ischemia of muscle, initial encounter (12) Hypertension SNOMED Code(s): 50761893 Code(s): I10 - ESSENTIAL (PRIMARY) HYPERTENSION Status: Acute Current Visit: Yes (13) Arthritis SNOMED Code(s): 1726972 Code(s): M19.90 - UNSPECIFIED OSTEOARTHRITIS, UNSPECIFIED SITE Status: Acute Current Visit: Yes (14) Chronic back pain SNOMED Code(s): 060707032 Code(s): M54.9 - DORSALGIA, UNSPECIFIED; G89.29 - OTHER CHRONIC PAIN Status: Acute Current Visit: Yes (15) Migraines SNOMED Code(s): 73126499 Code(s): G43.909 - MIGRAINE, UNSP, NOT INTRACTABLE, WITHOUT STATUS MIGRAINOSUS Status: Acute Current Visit: Yes (16) Anxiety SNOMED Code(s): 56644119 Code(s): F41.9 - ANXIETY DISORDER, UNSPECIFIED Status: Acute Current Visit: Yes (17) Eczema SNOMED Code(s): 86333876 Code(s): L30.9 - DERMATITIS, UNSPECIFIED Status: Acute Current Visit: Yes - Problem List Review Problem List Initiated/Reviewed/Updated: Yes - My Orders Last 24 Hours: My Active Orders 04/13/20 05:15 CBC WITH AUTO DIFF [HEME] Stat - Assessment Assessment:: Rhabdomyolysis secondary to immobilization from lying on the floor for unknown time Acute kidney injury Failure to thrive Closed head injury from falling out of bed Fall Generalized weakness Multiple abrasions Admission * Patient was found on the ground at her home for unknown time but up to 24 hours. * Patient has known difficulty with ambulation and getting around at home * She has weakness on exam * Creatinine kinase 2357 * Troponin 0 0.191 and 0.195 * Urine negative for myoglobin * Received 1 L saline in the emergency department 04/11/2020 * Patient denies any significant pain. * Physical therapy evaluated her today and felt she is not appropriate to go home. * Creatinine kinase 1994 * Troponin stable at 0.191 * Continues on IV fluids * Creatinine decreased to 0.8. BUN decreased to 22. 04/12/2020 * Creatinine kinase down to 697 * Acute kidney injury resolved * Creatinine 0.8, estimated GFR greater than 60 04/13/20 * Labs remain stable * Continues to have good urine output Thrombocytopenia, chronic 04/11/2020 * Platelets decreased to 16,000 today * She has no active bleeding. * No known work-up of her thrombocytopenia. * Platelets on September 2019 was 28,000 and November 2019 39,000 * Recheck at noon today platelets were 19,000. 04/12/2020 * Platelets down to 15,000 today * No active bleeding even after falling out of bed * Spoke with Dr. Jose Casanova master fire control technician and oncologist at [facility] who recommended giving 1 unit of packed red blood cells and rechecking platelets 30 to 45 minutes after to make sure platelets increase appropriately. He also recommended abdominal ultrasound which found a cystic structure within the lower pole of the left kidney measuring 3.9 cm. * Dr. Buenrostro recommends MRI to determine if the cyst malignant. * Fibrin degradation products done today and were elevated. This raises the possibility of chronic DIC. 04/13/20 * Significant ecchymosis but no signs of active bleeding * Family refusing MRI * Platelets up to 50 post platelet transfusion - now 26 Elevated troponin Admission * No significant ST-T wave changes on EKG * Likely secondary to prolonged immobilization and strain * This still puts her at increased risk for mortality 04/11/2020 * Troponin stable this morning at 0.191. * EKG no significant change 04/12/2020 * No chest pain. No significant changes. 04/13/20 * Denies cardiac symptoms. Hypertension Admission * Unknown which medications she is currently on * Blood pressure well controlled on presentation with blood pressure of 136/73 and a repeat blood pressure of 121/89 04/11/2020 * Blood pressure continues to be stable on home meds 04/13/20 * Vital signs remain stable Hypomagnesemia/hypophosphatemia/Hypokalemia 04/11/2020 * Magnesium 1.7 * Phosphorus 2.0 04/12/2020 * Potassium 3.4 * Phosphorus 2.0 04/13/20 * Potassium 3.2 * Magnesium 2.0 * Phosphorous 1.9 Closed head injury after falling out of bed on 04/12/20 04/12/20 * CT of the head and facial bones showed no intracranial bleed or fracture 04/13/20 * Stable - no signs of active hemorrhage Arthritis Chronic back pain Migraines Anxiety Eczema 04/13/20 * No current concerns - Plan Plan:: Rhabdomyolysis secondary to immobilization from lying on the floor for unknown time Acute kidney injury Failure to thrive Closed head injury from falling out of bed Fall Generalized weakness Multiple abrasions * No significant neurological changes. Continue to monitor * PT/OT * CBC, CMP, mag, phosphorus in the morning * Follow platelets closely * Re-check CK in AM * SNF placement Thrombocytopenia, chronic * 1 unit platelets given and platelet count came up to 50,000 at 30 to 45 minutes after transfusion. * Ultrasound of the abdomen showed no abnormality of the liver, but could not visualize spleen * Fibrin degradation products elevated * Repeat platelets in the morning * S/P platelet transfusion on 04/12/20 Elevated troponin * Troponin stable * No anticoagulation secondary to fall and thrombocytopenia * At increased risk for mortality Hypertension, stable * Monitor blood pressure * Continue home meds Hypomagnesemia/hypophosphatemia/Hypokalemia * Continue to monitor * Supplement as needed Cystic structure within left kidney measuring 3.9 cm * Family considering further evaluation of cystic structure if she stabilizes. * Family refusing follow-up MRI Arthritis Chronic back pain Migraines Anxiety Eczema * Home medications as directed * No acute concerns VTE prophylaxis: SCDs secondary to chemoprophylaxis contraindicated secondary to thrombocytopenia CODE STATUS: DNR/DNI Disposition: admitted to medical floor. Has been accepted to [facility]. Likely discharge on 04/14/20 to [facility]. LOS >96 HRs due to placement, Fall.
[2020-04-13] MEDS ORDERED: Potassium Phosphates 30 MMOLE in Sodium Chloride 0.9% 500 ML IV ONE (09:00)
[2020-04-13] MEDS: amLODIPine 5 MG Tab PO SCH (09:17)
[2020-04-13] MEDS: Gabapentin 300 MG Cap PO SCH ×3 (09:17→20:48)
[2020-04-13] MEDS: Acetaminophen 325 MG Tab PO PRN ×2 (11:39→20:48)
[2020-04-13] MEDS: Bacitracin/Neomycin/Polymyxin B Oint 15 GM Tube TOP SCH ×2 (12:30→20:47)
--- NOTE | 2020-04-14 07:29 | PCM.PN ---
- General Info Date of Service: 04/14/20 Admission Dx/Problem (Free Text): Admission Diagnosis/Problem Admission Diagnosis/Problem Failure to thrive Subjective Update: Reports that she feels pretty good until someone tries to move her Last BM on 04/12/20 Reports she slept OK. No other patient concerns Functional Status: Reports: Pain Controlled, Tolerating Diet, Ambulating, Urinating. Denies: New Symptoms - Review of Systems General: Reports: Weakness, Fatigue. Denies: Fever, Malaise, Chills HEENT: Reports: No Symptoms. Denies: Headaches, Sore Throat Pulmonary: Reports: No Symptoms. Denies: Shortness of Breath, Cough, Sputum, Wheezing Cardiovascular: Reports: No Symptoms. Denies: Chest Pain, Palpitations Gastrointestinal: Reports: No Symptoms. Denies: Abdominal Pain, Constipation, Diarrhea, Nausea, Vomiting Genitourinary: Reports: No Symptoms. Denies: Pain Musculoskeletal: Reports: Shoulder Pain (left), Other (generalized myalgias ) Skin: Reports: No Symptoms. Denies: Cyanosis Neurological: Reports: Confusion, Difficulty Walking, Weakness, Gait Disturbance. Denies: Seizure Psychiatric: Reports: No Symptoms - Patient Data Vitals - Most Recent: Last Vital Signs Temp 98.4 F 04/14/20 04:14 Pulse 71 04/14/20 04:14 Resp 18 04/14/20 04:14 BP 137/83 04/14/20 04:14 Pulse Ox 95 04/14/20 04:14 Weight - Most Recent: 115 lb 14.4 oz I&O - Last 24 Hours: Intake & Output 04/13/20 04/14/20 04/14/20 22:59 06:59 14:59 Intake Total 730 200 Balance 730 200 Lab Results Last 24 Hours: Laboratory Results - last 24 hr 04/13/20 04/13/20 04/13/20 Range/Units 05:15 05:15 13:58 WBC 10.81 H (3.98-10.04) K/mm3 RBC 3.35 L (3.98-5.22) M/mm3 Hgb 9.8 L (11.2-15.7) gm/dl Hct 30.7 L (34.1-44.9) % MCV 91.6 (79.4-94.8) fl MCH 29.3 (25.6-32.2) pg MCHC 31.9 L (32.2-35.5) g/dl RDW Std Deviation 48.2 H (36.4-46.3) fL Plt Count 26 L (182-369) K/mm3 Neut % (Auto) 75.8 H (34.0-71.1) % Lymph % (Auto) 11.6 L (19.3-51.7) % [place] % (Auto) 10.5 (4.7-12.5) % Eos % (Auto) 1.2 (0.7-5.8) Baso % (Auto) 0.3 (0.1-1.2) % Neut # (Auto) 8.21 H (1.56-6.13) K/mm3 Lymph # (Auto) 1.25 (1.18-3.74) K/mm3 [place] # (Auto) 1.13 H (0.24-0.36) K/mm3 Eos # (Auto) 0.13 (0.04-0.36) K/mm3 Baso # (Auto) 0.03 (0.01-0.08) K/mm3 Manual Slide Review Abnormal smear Sodium 139 (136-145) mEq/L Potassium 3.2 L (3.5-5.1) mEq/L Chloride 105 (98-107) mEq/L Carbon Dioxide 26 (21-32) mEq/L Anion Gap 11.2 (5-15) BUN 10 (7-18) mg/dL Creatinine 0.8 (0.55-1.02) mg/dL Est Cr Clr Drug Dosing 39.26 mL/min Estimated GFR (MDRD) > 60 (>60) mL/min BUN/Creatinine Ratio 12.5 L (14-18) Glucose 99 (83-115) mg/dL Calcium 8.1 L (8.5-10.1) mg/dL Phosphorus (2.6-4.7) mg/dL Magnesium (1.8-2.4) mg/dl Total Bilirubin 0.7 (0.2-1.0) mg/dL AST 48 H (15-37) U/L ALT 53 (14-59) U/L Alkaline Phosphatase 71 (46-116) U/L Creatine Kinase (26-192) U/L Total Protein 6.0 L (6.4-8.2) g/dl Albumin 2.7 L (3.4-5.0) g/dl Globulin 3.3 gm/dL Albumin/Globulin Ratio 0.8 L (1-2) SARS-CoV-2 RNA (RT-PCR) Negative (NEGATIVE) 04/14/20 04/14/20 Range/Units 05:20 05:20 WBC 7.81 (3.98-10.04) K/mm3 RBC 3.65 L (3.98-5.22) M/mm3 Hgb 10.6 L (11.2-15.7) gm/dl Hct 33.5 L (34.1-44.9) % MCV 91.8 (79.4-94.8) fl MCH 29.0 (25.6-32.2) pg MCHC 31.6 L (32.2-35.5) g/dl RDW Std Deviation 49.0 H (36.4-46.3) fL Plt Count 31 L (182-369) K/mm3 Neut % (Auto) 64.1 (34.0-71.1) % Lymph % (Auto) 16.3 L (19.3-51.7) % [place] % (Auto) 13.3 H (4.7-12.5) % Eos % (Auto) 4.5 (0.7-5.8) Baso % (Auto) 0.5 (0.1-1.2) % Neut # (Auto) 5.01 (1.56-6.13) K/mm3 Lymph # (Auto) 1.27 (1.18-3.74) K/mm3 [place] # (Auto) 1.04 H (0.24-0.36) K/mm3 Eos # (Auto) 0.35 (0.04-0.36) K/mm3 Baso # (Auto) 0.04 (0.01-0.08) K/mm3 Manual Slide Review Abnormal smear Sodium 143 (136-145) mEq/L Potassium 3.6 (3.5-5.1) mEq/L Chloride 109 H (98-107) mEq/L Carbon Dioxide 27 (21-32) mEq/L Anion Gap 10.6 (5-15) BUN 13 (7-18) mg/dL Creatinine 0.7 (0.55-1.02) mg/dL Est Cr Clr Drug Dosing 45.05 mL/min Estimated GFR (MDRD) > 60 (>60) mL/min BUN/Creatinine Ratio 18.6 H (14-18) Glucose 103 (83-115) mg/dL Calcium 8.0 L (8.5-10.1) mg/dL Phosphorus 2.6 (2.6-4.7) mg/dL Magnesium 1.9 (1.8-2.4) mg/dl Total Bilirubin 0.6 (0.2-1.0) mg/dL AST 43 H (15-37) U/L ALT 55 (14-59) U/L Alkaline Phosphatase 82 (46-116) U/L Creatine Kinase 187 (26-192) U/L Total Protein 6.3 L (6.4-8.2) g/dl Albumin 2.7 L (3.4-5.0) g/dl Globulin 3.6 gm/dL Albumin/Globulin Ratio 0.8 L (1-2) SARS-CoV-2 RNA (RT-PCR) (NEGATIVE) Med Orders - Current: Current Medications Acetaminophen (Tylenol) 650 mg PO Q4H PRN PRN Reason: Pain (Mild 1-3)/fever Last Admin: 04/13/20 20:48 Dose: 650 mg Documented by: Amlodipine Besylate (Norvasc) 5 mg PO DAILY [facility] Last Admin: 04/13/20 09:17 Dose: 5 mg Documented by: Artificial Tears (Refresh Liquigel 1%) 0 ml EYEBOTH ASDIRECTED PRN PRN Reason: Dry Eyes Gabapentin (Neurontin) 300 mg PO TID [facility] Last Admin: 04/13/20 20:48 Dose: 300 mg Documented by: Neomycin/Polymyxin/Bacitracin (Neosporin Oint) 0 gm TOP BID [facility] Last Admin: 04/13/20 20:47 Dose: 1 applic Documented by: Ondansetron HCl (Zofran) 4 mg IV Q4H PRN PRN Reason: Nausea/Vomiting Senna/Docusate Sodium (Senna Plus) 1 tab PO BID PRN PRN Reason: Constipation Last Admin: 04/12/20 05:47 Dose: 1 tab Documented by: Sodium Chloride (Saline Flush) 10 ml FLUSH ASDIRECTED PRN PRN Reason: Keep Vein Open Last Admin: 04/10/20 11:08 Dose: 10 ml Documented by: Discontinued Medications Cyanocobalamin (Vitamin B12) 1,000 mcg PO DAILY [facility] Last Admin: 04/12/20 08:46 Dose: 1,000 mcg Documented by: Sodium Chloride (Normal Saline) 1,000 mls @ 1,000 mls/hr IV .BOLUS [facility] Last Infusion: 04/10/20 12:08 Dose: Infused Documented by: Sodium Chloride (Normal Saline) 1,000 mls @ 100 mls/hr IV ASDIRECTED [facility] Last Admin: 04/12/20 00:47 Dose: 100 mls/hr Documented by: Magnesium Sulfate 2 gm/ Premix 50 mls @ 25 mls/hr IV ONETIME ONE Stop: 04/11/20 12:29 Last Admin: 04/11/20 10:55 Dose: 25 mls/hr Documented by: Sodium Chloride (Normal Saline) 250 mls @ 50 mls/hr IV ASDIRECTED [facility] Stop: 04/12/20 18:00 Last Admin: 04/12/20 13:22 Dose: 50 mls/hr Documented by: Potassium Phosphate 30 mmole/ (Sodium Chloride) 510 mls @ 102 mls/hr IV ONETIME ONE Stop: 04/13/20 13:59 Last Admin: 04/13/20 09:18 Dose: 102 mls/hr Documented by: Potassium Chloride (Klor-Con M20) 40 meq PO ONETIME ONE Stop: 04/11/20 07:40 Last Admin: 04/11/20 08:40 Dose: 40 meq Documented by: Potassium Chloride (Klor-Con M20) 20 meq PO ONETIME ONE Stop: 04/12/20 07:57 Last Admin: 04/12/20 08:47 Dose: 20 meq Documented by: - Exam Quality Assessment: DVT Prophylaxis General: Alert, Oriented (Mostly ), Cooperative, No Acute Distress HEENT: Pupils Equal, Pupils Reactive, Mucous Membr. Moist/[place] Neck: Supple, Trachea Midline Lungs: Clear to Auscultation, Normal Respiratory Effort Cardiovascular: Regular Rate, Regular Rhythm GI/Abdominal Exam: Normal Bowel Sounds, Soft, Non-Tender (Female) Exam: Deferred Extremities: Limited Range of Motion, Other (Scattered ecchymosis- especially to arms and hands ) Skin: Warm, Dry, Intact, Ecchymosis (Scatered ) Wound/Incisions: No: Erythema Neurological: No New Focal Deficit Psy/Mental Status: Alert Sepsis Event Note - Evaluation Sepsis Screening Result: No Definite Risk - Focused Exam Vital Signs: Vital Signs Temp Pulse Resp BP Pulse Ox 04/14/20 04:14 98.4 F 71 18 137/83 95 04/13/20 20:46 98.4 F 77 18 148/67 H 96 Date Exam was Performed: 04/14/20 Time Exam was Performed: 18:47 - Problem List & Annotations (1) Thrombocytopenia SNOMED Code(s): 210783829 Code(s): D69.6 - THROMBOCYTOPENIA, UNSPECIFIED Status: Acute Current V isit: Yes (2) Closed head injury SNOMED Code(s): 652371966130 Code(s): S09.90XA - UNSPECIFIED INJURY OF HEAD, INITIAL ENCOUNTER Status: Acute Current Visit: Yes (3) Hypomagnesemia SNOMED Code(s): 885744441 Code(s): E83.42 - HYPOMAGNESEMIA Status: Acute Current Visit: Yes (4) Hypophosphatemia SNOMED Code(s): 7390900 Code(s): E83.39 - OTHER DISORDERS OF PHOSPHORUS METABOLISM Status: Acute Current Visit: Yes (5) Hypokalemia SNOMED Code(s): 96332958 Code(s): E87.6 - HYPOKALEMIA Status: Acute Current Visit: Yes (6) Elevated troponin SNOMED Code(s): 668810828, 758670848, 280111444 Code(s): R79.89 - OTHER SPECIFIED ABNORMAL FINDINGS OF BLOOD CHEMISTRY Status: Acute Current Visit: Yes (7) Failure to thrive in adult SNOMED Code(s): 822125176 Code(s): R62.7 - ADULT FAILURE TO THRIVE Status: Acute Current Visit: Yes (8) Fall SNOMED Code(s): 6393824, 131781551 Code(s): W19.XXXA - UNSPECIFIED FALL, INITIAL ENCOUNTER Status: Acute C urrent Visit: Yes Qualifiers: Encounter type: initial encounter Qualified Code(s): W19.XXXA - Unspecified fall, initial encounter (9) Generalized weakness SNOMED Code(s): 37269633 Code(s): R53.1 - WEAKNESS Status: Acute Current Visit: Yes (10) Multiple abrasions SNOMED Code(s): 645627853, 777049576 Code(s): T07.XXXA - UNSPECIFIED MULTIPLE INJURIES, INITIAL ENCOUNTER Status: Acute Current Visit: Yes (11) Rhabdomyolysis SNOMED Code(s): 484059811 Code(s): M62.82 - RHABDOMYOLYSIS Status: Acute Current Visit: Yes Qualifiers: Rhabdomyolysis type: traumatic Encounter type: initial encounter Qualified Code(s): T79.6XXA - Traumatic ischemia of muscle, initial encounter (12) Hypertension SNOMED Code(s): 50093283 Code(s): I10 - ESSENTIAL (PRIMARY) HYPERTENSION Status: Acute Current Visit: Yes (13) Arthritis SNOMED Code(s): 7518929 Code(s): M19.90 - UNSPECIFIED OSTEOARTHRITIS, UNSPECIFIED SITE Status: Acute Current Visit: Yes (14) Chronic back pain SNOMED Code(s): 066142238 Code(s): M54.9 - DORSALGIA, UNSPECIFIED; G89.29 - OTHER CHRONIC PAIN Status: Acute Current Visit: Yes (15) Migraines SNOMED Code(s): 93807605 Code(s): G43.909 - MIGRAINE, UNSP, NOT INTRACTABLE, WITHOUT STATUS MIGRAINOSUS Status: Acute Current Visit: Yes (16) Anxiety SNOMED Code(s): 67759483 Code(s): F41.9 - ANXIETY DISORDER, UNSPECIFIED Status: Acute Current Visit: Yes (17) Eczema SNOMED Code(s): 63582967 Code(s): L30.9 - DERMATITIS, UNSPECIFIED Status: Acute Current Visit: Yes - Problem List Review Problem List Initiated/Reviewed/Updated: Yes - My Orders Last 24 Hours: My Active Orders 04/13/20 07:32 Consult to Case Management/Cemetery Manager [CONS] Routine 04/13/20 11:15 Bacitracin/Neomycin/Polymyxin [Neosporin Oint] 0 gm TOP BID - Assessment Assessment:: S/P Rhabdomyolysis secondary to immobilization from lying on the floor for unknown time S/P Acute kidney injury Failure to thrive Closed head injury from falling out of bed Fall Generalized weakness Multiple abrasions Admission * Patient was found on the ground at her home for unknown time but up to 24 hours. * Patient has known difficulty with ambulation and getting around at home * She has weakness on exam * Creatinine kinase 2357 * Troponin 0 0.191 and 0.195 * Urine negative for myoglobin * Received 1 L saline in the emergency department 04/11/2020 * Patient denies any significant pain. * Physical therapy evaluated her today and felt she is not appropriate to go home. * Creatinine kinase 1994 * Troponin stable at 0.191 * Continues on IV fluids * Creatinine decreased to 0.8. BUN decreased to 22. 04/12/2020 * Creatinine kinase down to 697 * Acute kidney injury resolved * Creatinine 0.8, estimated GFR greater than 60 04/13/20 * Labs remain stable * Continues to have good urine output 04/14/20 * Labs remain stable * Continued weakness - PT/OT recommending SNF * Reports generalized pain Thrombocytopenia, chronic 04/11/2020 * Platelets decreased to 16,000 today * She has no active bleeding. * No known work-up of her thrombocytopenia. * Platelets on September 2019 was 28,000 and November 2019 39,000 * Recheck at noon today platelets were 19,000. 04/12/2020 * Platelets down to 15,000 today * No active bleeding even after falling out of bed * Spoke with Dr. Jose Casanova bumboater and oncologist at [facility] who recommended giving 1 unit of packed red blood cells and rechecking platelets 30 to 45 minutes after to make sure platelets increase appropria tely. He also recommended abdominal ultrasound which found a cystic structure within the lower pole of the left kidney measuring 3.9 cm. * Dr. Buenrostro recommends MRI to determine if the cyst malignant. * Fibrin degradation products done today and were elevated. This raises the possibility of chronic DIC. 04/13/20 * Significant ecchymosis but no signs of active bleeding * Family refusing MRI * Platelets up to 50 post platelet transfusion - now 26 04/14/20 * Platelets improved to 31 today * Continued ecchymosis but still no signs of bleeding Elevated troponin Admission * No significant ST-T wave changes on EKG * Likely secondary to prolonged immobilization and strain * This still puts her at increased risk for mortality 04/11/2020 * Troponin stable this morning at 0.191. * EKG no significant change 04/12/2020 * No chest pain. No significant changes. 04/13/20 * Denies cardiac symptoms. 04/14/20 * Remains stable Hypertension Admission * Unknown which medications she is currently on * Blood pressure well controlled on presentation with blood pressure of 136/73 and a repeat blood pressure of 121/89 04/11/2020 * Blood pressure continues to be stable on home meds 04/13/20 * Vital signs remain stable 04/14/20 * Vital signs remain stable S/P Hypomagnesemia/hypophosphatemia/Hypokalemia 04/11/2020 * Magnesium 1.7 * Phosphorus 2.0 04/12/2020 * Potassium 3.4 * Phosphorus 2.0 04/13/20 * Potassium 3.2 * Magnesium 2.0 * Phosphorous 1.9 04/14/20 * Potassium 3.6 * Magnesium 1.9 * Phosphorous 2.6 Closed head injury after falling out of bed on 04/12/20 04/12/20 * CT of the head and facial bones showed no intracranial bleed or fracture 04/13/20 * Stable - no signs of active hemorrhage 04/14/20 * Continued stability Arthritis Chronic back pain Migraines Anxiety Eczema 04/13/20 * No current concerns 04/14/20 * No current concerns - Plan Plan:: S/P Rhabdomyolysis secondary to immobilization from lying on the floor for unknown time S/P Acute kidney injury Failure to thrive Closed head injury from falling out of bed Fall Generalized weakness Multiple abrasions * No significant neurological changes. Continue to monitor * PT/OT * Labs remain stable * Follow platelets closely * SNF placement Thrombocytopenia, chronic * 1 unit platelets given and platelet count came up to 50,000 at 30 to 45 minutes after transfusion. * Ultrasound of the abdomen showed no abnormality of the liver, but could not visualize spleen * Fibrin degradation products elevated * S/P platelet transfusion on 04/12/20 Elevated troponin - inactive * Troponin stable * No anticoagulation secondary to fall and thrombocytopenia * At increased risk for mortality Hypertension, stable * Monitor blood pressure * Continue home meds S/P Hypomagnesemia/hypophosphatemia/Hypokalemia * Continue to monitor * Supplement as needed Cystic structure within left kidney measuring 3.9 cm * Family considering further evaluation of cystic structure if she stabilizes. * Family refusing follow-up MRI Arthritis Chronic back pain Migraines Anxiety Eczema * Home medications as directed * No acute concerns VTE prophylaxis: SCDs secondary to chemoprophylaxis contraindicated secondary to thrombocytopenia CODE STATUS: DNR/DNI Disposition: admitted to medical floor. Has been accepted to [facility]. Likely discharge on 04/15/20 to [facility]. Cleared for discharge, however [facility] is performing mass COVID-19 testing today and will not accept new admissions. LOS >96 HRs due to placement, Fall.
[2020-04-14] MEDS: Gabapentin 300 MG Cap PO SCH ×3 (08:00→20:50)
[2020-04-14] MEDS: amLODIPine 5 MG Tab PO SCH (08:01)
[2020-04-14] MEDS: Bacitracin/Neomycin/Polymyxin B Oint 15 GM Tube TOP SCH ×2 (08:01→20:50)
[2020-04-14] MEDS: Acetaminophen 325 MG Tab PO PRN (20:50)
--- NOTE | 2020-04-15 07:30 | PCM.PN ---
- General Info Date of Service: 04/15/20 Admission Dx/Problem (Free Text): Admission Diagnosis/Problem Admission Diagnosis/Problem Failure to thrive Subjective Update: Reports that she feels good Bruising is improving Nursing reports she has been picking at the scab on her chin, but otherwise no concerns Last BM on 04/12/20 - nursing starting senna Reports she slept OK. No other patient concerns Functional Status: Reports: Pain Controlled, Tolerating Diet, Ambulating, Urinating. Denies: New Symptoms - Review of Systems General: Reports: Weakness, Fatigue. Denies: Fever, Malaise, Chills HEENT: Reports: No Symptoms. Denies: Headaches, Sore Throat Pulmonary: Reports: No Symptoms. Denies: Shortness of Breath, Cough, Sputum, Wheezing Cardiovascular: Reports: No Symptoms. Denies: Chest Pain, Palpitations, Dyspnea on Exertion Gastrointestinal: Reports: No Symptoms. Denies: Abdominal Pain, Constipation, Diarrhea, Nausea, Vomiting Genitourinary: Reports: No Symptoms Musculoskeletal: Reports: Other (Generalized myalgias ) Skin: Reports: No Symptoms Neurological: Reports: Difficulty Walking, Weakness, Gait Disturbance. Denies: Confusion Psychiatric: Reports: No Symptoms - Patient Data Vitals - Most Recent: Last Vital Signs Temp 99.0 F 04/15/20 05:46 Pulse 69 04/15/20 05:46 Resp 18 04/15/20 05:46 BP 147/81 H 04/15/20 05:46 Pulse Ox 93 L 04/15/20 05:46 Weight - Most Recent: 115 lb 3.2 oz I&O - Last 24 Hours: Intake & Output 04/14/20 04/15/20 04/15/20 22:59 06:59 14:59 Intake Total 860 200 Balance 860 200 Med Orders - Current: Current Medications Acetaminophen (Tylenol) 650 mg PO Q4H PRN PRN Reason: Pain (Mild 1-3)/fever Last Admin: 04/14/20 20:50 Dose: 650 mg Documented by: Amlodipine Besylate (Norvasc) 5 mg PO DAILY [facility] Last Admin: 04/14/20 08:01 Dose: 5 mg Documented by: Artificial Tears (Refresh Liquigel 1%) 0 ml EYEBOTH ASDIRECTED PRN PRN Reason: Dry Eyes Gabapentin (Neurontin) 300 mg PO TID [facility] Last Admin: 04/14/20 20:50 Dose: 300 mg Documented by: Neomycin/Polymyxin/Bacitracin (Neosporin Oint) 0 gm TOP BID [facility] Last Admin: 04/14/20 20:50 Dose: 1 applic Documented by: Ondansetron HCl (Zofran) 4 mg IV Q4H PRN PRN Reason: Nausea/Vomiting Senna/Docusate Sodium (Senna Plus) 1 tab PO BID PRN PRN Reason: Constipation Last Admin: 04/12/20 05:47 Dose: 1 tab Documented by: Sodium Chloride (Saline Flush) 10 ml FLUSH ASDIRECTED PRN PRN Reason: Keep Vein Open Last Admin: 04/10/20 11:08 Dose: 10 ml Documented by: Discontinued Medications Cyanocobalamin (Vitamin B12) 1,000 mcg PO DAILY [facility] Last Admin: 04/12/20 08:46 Dose: 1,000 mcg Documented by: Sodium Chloride (Normal Saline) 1,000 mls @ 1,000 mls/hr IV .BOLUS [facility] Last Infusion: 04/10/20 12:08 Dose: Infused Documented by: Sodium Chloride (Normal Saline) 1,000 mls @ 100 mls/hr IV ASDIRECTED [facility] Last Admin: 04/12/20 00:47 Dose: 100 mls/hr Documented by: Magnesium Sulfate 2 gm/ Premix 50 mls @ 25 mls/hr IV ONETIME ONE Stop: 04/11/20 12:29 Last Admin: 04/11/20 10:55 Dose: 25 mls/hr Documented by: Sodium Chloride (Normal Saline) 250 mls @ 50 mls/hr IV ASDIRECTED [facility] Stop: 04/12/20 18:00 Last Admin: 04/12/20 13:22 Dose: 50 mls/hr Documented by: Potassium Phosphate 30 mmole/ (Sodium Chloride) 510 mls @ 102 mls/hr IV ONETIME ONE Stop: 04/13/20 13:59 Last Admin: 04/13/20 09:18 Dose: 102 mls/hr Documented by: Potassium Chloride (Klor-Con M20) 40 meq PO ONETIME ONE Stop: 04/11/20 07:40 Last Admin: 04/11/20 08:40 Dose: 40 meq Documented by: Potassium Chloride (Klor-Con M20) 20 meq PO ONETIME ONE Stop: 04/12/20 07:57 Last Admin: 04/12/20 08:47 Dose: 20 meq Documented by: - Exam Quality Assessment: DVT Prophylaxis General: Alert, Oriented, Cooperative, No Acute Distress HEENT: Pupils Equal, Pupils Reactive, Mucous Membr. Moist/[place] Neck: Supple, Trachea Midline Lungs: Clear to Auscultation, Normal Respiratory Effort Cardiovascular: Regular Rate, Regular Rhythm GI/Abdominal Exam: Normal Bowel Sounds, Soft, Non-Tender, No Distention (Female) Exam: Deferred Back Exam: Decreased Range of Motion Extremities: Normal Inspection, Non-Tender, Normal Capillary Refill, Limited Range of Motion, Other (Signigicant ecchymosis on all extremities. Abrasion to left shoulder, bilateral knees, and chin. All are healing well and show no signs of infection.) Peripheral Pulses: 1+: Dorsalis Pedis (L), Dorsalis Pedis (R), 2+: Radial (L), Radial (R) Skin: Warm, Dry, Intact, Ecchymosis (scattered ) Neurological: No New Focal Deficit Psy/Mental Status: Alert, Normal Affect, Normal Mood Sepsis Event Note - Evaluation Sepsis Screening Result: No Definite Risk - Focused Exam Vital Signs: Vital Signs Temp Pulse Resp BP Pulse Ox 04/15/20 05:46 99.0 F 69 18 147/81 H 93 L 04/14/20 20:49 98.8 F 86 18 151/70 H 95 Date Exam was Performed: 04/15/20 Time Exam was Performed: 11:12 - Problem List & Annotations (1) Thrombocytopenia SNOMED Code(s): 482385170 Code(s): D69.6 - THROMBOCYTOPENIA, UNSPECIFIED Status: Acute Current Visit: Yes (2) Closed head injury SNOMED Code(s): 155707590471 Code(s): S09.90XA - UNSPECIFIED INJURY OF HEAD, INITIAL ENCOUNTER Status: Acute Current Visit: Yes (3) Hypomagnesemia SNOMED Code(s): 567564557 Code(s): E83.42 - HYPOMAGNESEMIA Status: Acute Current Visit: Yes (4) Hypophosphatemia SNOMED Code(s): 2359676 Code(s): E83.39 - OTHER DISORDERS OF PHOSPHORUS METABOLISM Status: Acute Current Visit: Yes (5) Hypokalemia SNOMED Code(s): 15239996 Code(s): E87.6 - HYPOKALEMIA Status: Acute Current Visit: Yes (6) Elevated troponin SNOMED Code(s): 998970425, 950089456, 728394389 Code(s): R79.89 - OTHER SPECIFIED ABNORMAL FINDINGS OF BLOOD CHEMISTRY Status: Acute Current Visit: Yes (7) Failure to thrive in adult SNOMED Code(s): 491673330 Code(s): R62.7 - ADULT FAILURE TO THRIVE Status: Acute Current Visit: Yes (8) Fall SNOMED Code(s): 9155363, 699663084 Code(s): W19.XXXA - UNSPECIFIED FALL, INITIAL ENCOUNTER Status: Acute Current Visit: Yes Qualifiers: Encounter type: initial encounter Qualified Code(s): W19.XXXA - Unspecified fall, initial encounter (9) Generalized weakness SNOMED Code(s): 39128050 Code(s): R53.1 - WEAKNESS Status: Acute Current Visit: Yes (10) Multiple abrasions SNOMED Code(s): 219062222, 200803862 Code(s): T07.XXXA - UNSPECIFIED MULTIPLE INJURIES, INITIAL ENCOUNTER Status: Acute Current Visit: Yes (11) Rhabdomyolysis SNOMED Code(s): 759084803 Code(s): M62.82 - RHABDOMYOLYSIS Status: Acute Current Visit: Yes Qualifiers: Rhabdomyolysis type: traumatic Encounter type: initial encounter Qualified Code(s): T79.6XXA - Traumatic ischemia of muscle, initial encounter (12) Hypertension SNOMED Code(s): 64132208 Code(s): I10 - ESSENTIAL (PRIMARY) HYPERTENSION Status: Acute Current Visit: Yes (13) Arthritis SNOMED Code(s): 1786649 Code(s): M19.90 - UNSPECIFIED OSTEOARTHRITIS, UNSPECIFIED SITE Status: Acute Current Visit: Yes (14) Chronic back pain SNOMED Code(s): 963262952 Code(s): M54.9 - DORSALGIA, UNSPECIFIED; G89.29 - OTHER CHRONIC PAIN Status: Acute Current Visit: Yes (15) Migraines SNOMED Code(s): 16565999 Code(s): G43.909 - MIGRAINE, UNSP, NOT INTRACTABLE, WITHOUT STATUS MIGRAINOSUS Status: Acute Current Visit: Yes (16) Anxiety SNOMED Code(s): 42365778 Code(s): F41.9 - ANXIETY DISORDER, UNSPECIFIED Status: Acute Current Visit: Yes (17) Eczema SNOMED Code(s): 04584262 Code(s): L30.9 - DERMATITIS, UNSPECIFIED Status: Acute Current Visit: Yes - Problem List Review Problem List Initiated/Reviewed/Updated: Yes - Assessment Assessment:: S/P Rhabdomyolysis secondary to immobilization from lying on the floor for unknown time S/P Acute kidney injury Failure to thrive Closed head injury from falling out of bed Fall Generalized weakness - improved Multiple abrasions Admission * Patient was found on the ground at her home for unknown time but up to 24 hours. * Patient has known difficulty with ambulation and getting around at home * She has weakness on exam * Creatinine kinase 2357 * Troponin 0 0.191 and 0.195 * Urine negative for myoglobin * Received 1 L saline in the emergency department 04/11/2020 * Patient denies any significant pain. * Physical therapy evaluated her today and felt she is not appropriate to go home. * Creatinine kinase 1994 * Troponin stable at 0.191 * Continues on IV fluids * Creatinine decreased to 0.8. BUN decreased to 22. 04/12/2020 * Creatinine kinase down to 697 * Acute kidney injury resolved * Creatinine 0.8, estimated GFR greater than 60 04/13/20 * Labs remain stable * Continues to have good urine output 04/14/20 * Labs remain stable * Continued weakness - PT/OT recommending SNF * Reports generalized pain 04/15/20 * No concerns * Remains stable with continued weakness * Pending placement Thrombocytopenia, chronic 04/11/2020 * Platelets decreased to 16,000 today * She has no active bleeding. * No known work-up of her thrombocytopenia. * Platelets on September 2019 was 28,000 and November 2019 39,000 * Recheck at noon today platelets were 19,000. 04/12/2020 * Platelets down to 15,000 today * No active bleeding even after falling out of bed * Spoke with Dr. Jose Casanova turfgrass technician and oncologist at [facility] who recommended giving 1 unit of packed red blood cells and rechecking platelets 30 to 45 minutes after to make sure platelets increase appropriately. He also recommended abdominal ultrasound which found a cystic structure within the lower pole of the left kidney measuring 3.9 cm. * Dr. Buenrostro recommends MRI to determine if the cyst malignant. * Fibrin degradation products done today and were elevated. This raises the possibility of chronic DIC. 04/13/20 * Significant ecchymosis but no signs of active bleeding * Family refusing MRI * Platelets up to 50 post platelet transfusion - now 26 04/14/20 * Platelets improved to 31 today * Continued ecchymosis but still no signs of bleeding 04/15/20 * Deferred labs today Hypertension Admission * Unknown which medications she is currently on * Blood pressure well controlled on presentation with blood pressure of 136/73 and a repeat blood pressure of 121/89 04/11/2020 * Blood pressure continues to be stable on home meds 04/13/20 * Vital signs remain stable 04/14/20 * Vital signs remain stable 04/15/20 * Continued stability S/P Hypomagnesemia/hypophosphatemia/Hypokalemia 04/11/2020 * Magnesium 1.7 * Phosphorus 2.0 04/12/2020 * Potassium 3.4 * Phosphorus 2.0 04/13/20 * Potassium 3.2 * Magnesium 2.0 * Phosphorous 1.9 04/14/20 * Potassium 3.6 * Magnesium 1.9 * Phosphorous 2.6 04/15/20 * Deferred labs today Closed head injury after falling out of bed on 04/12/20 04/12/20 * CT of the head and facial bones showed no intracranial bleed or fracture 04/13/20 * Stable - no signs of active hemorrhage 04/14/20 * Continued stability 04/15/20 * Continued stability * Ecchymosis improving Arthritis Chronic back pain Migraines Anxiety Eczema 04/13/20 * No current concerns 04/14/20 * No current concerns 04/15/20 * No current concerns Elevated troponin - Inactive Admission * No significant ST-T wave changes on EKG * Likely secondary to prolonged immobilization and strain * This still puts her at increased risk for mortality 04/11/2020 * Troponin stable this morning at 0.191. * EKG no significant change 04/12/2020 * No chest pain. No significant changes. 04/13/20 * Denies cardiac symptoms. 04/14/20 * Remains stable - Plan Plan:: S/P Rhabdomyolysis secondary to immobilization from lying on the floor for unknown time S/P Acute kidney injury Failure to thrive Closed head injury from falling out of bed Fall Generalized weakness Multiple abrasions * No significant neurological changes. Continue to monitor * PT/OT * Labs deferred today * SNF placement * May remove IV today * Bandage chin PRN - Do not leave covered for more that 4 hours at a time. Change dressing frequently. Open to air as much as possible. Thrombocytopenia, chronic * 1 unit platelets given and platelet count came up to 50,000 at 30 to 45 minutes after transfusion. * Ultrasound of the abdomen showed no abnormality of the liver, but could not visualize spleen * Fibrin degradation products elevated * S/P platelet transfusion on 04/12/20 * Labs deferred today Hypertension, stable * Monitor blood pressure * Continue home meds Arthritis Chronic back pain Migraines Anxiety Eczema * Home medications as directed * No acute concerns Elevated troponin - inactive * Troponin stable * No anticoagulation secondary to fall and thrombocytopenia * At increased risk for mortality Cystic structure within left kidney measuring 3.9 cm - Inactive * Family considering further evaluation of cystic structure if she stabilizes. * Family refusing follow-up MRI S/P Hypomagnesemia/hypophosphatemia/Hypokalemia * Continue to monitor * Supplement as needed VTE prophylaxis: SCDs secondary to chemoprophylaxis contraindicated secondary to thrombocytopenia CODE STATUS: DNR/DNI Disposition: admitted to medical floor. Has been accepted to [facility]. Difficulty obtaining placement due to mass COVID testing at [facility]. Looking into placement at [facility] and [facility] still. Both facilities will be unable to accept patient until Saturday. Will need repeat COVID-19 test on 04/17/20 for SNF admission. LOS >96 HRs due to placement difficulty.
[2020-04-15] MEDS: amLODIPine 5 MG Tab PO SCH (08:04)
[2020-04-15] MEDS: Gabapentin 300 MG Cap PO SCH ×3 (08:04→21:06)
[2020-04-15] MEDS: Bacitracin/Neomycin/Polymyxin B Oint 15 GM Tube TOP SCH ×2 (08:05→21:05)
[2020-04-15] MEDS: Sennosides 8.6 MG Tab PO SCH ×2 (11:10→21:06)
[2020-04-16] MEDS: Bacitracin/Neomycin/Polymyxin B Oint 15 GM Tube TOP SCH ×2 (08:52→20:31)
[2020-04-16] MEDS: amLODIPine 5 MG Tab PO SCH (08:54)
[2020-04-16] MEDS: Gabapentin 300 MG Cap PO SCH ×3 (08:57→20:31)
[2020-04-16] MEDS: Sennosides 8.6 MG Tab PO SCH ×2 (08:57→20:31)
--- NOTE | 2020-04-16 09:56 | PCM.PN ---
- General Info Date of Service: 04/16/20 Subjective Update: Slept OK No changes in eating habits Last BM 04/13 Still picking at scabs - Patient Data Vitals - Most Recent: Last Vital Signs Temp 98.2 F 04/16/20 05:39 Pulse 81 04/16/20 05:39 Resp 20 04/16/20 05:39 BP 143/61 H 04/16/20 08:54 Pulse Ox 95 04/16/20 05:39 Weight - Most Recent: 51.755 kg - Exam General: Alert, Cooperative, No Acute Distress HEENT: Pupils Equal, Pupils Reactive, EOMI, Mucous Membr. Moist/[place] Neck: Supple, Trachea Midline, No JVD, No Thyromegaly Lungs: Decreased Breath Sounds, Crackles. No: Rales, Rhonchi, Rub, Stridor, Wheezing Cardiovascular: Regular Rate, Regular Rhythm. No: Murmurs, Gallops, Rubs GI/Abdominal Exam: Normal Bowel Sounds, Soft, Non-Tender. No: Distended, Guarding, Rigid, Rebound Extremities: Other (ecchymotic lesions resolving, excoriation over left shoulder has improved and less painful)) Skin: Ecchymosis (with appropriate resolution, no hematomas are palpated), Other (skin on chin excoriation scab is starting to peel off, resolving appropriately, shoulder one improving but not resolved) Sepsis Event Note - Evaluation Sepsis Screening Result: No Definite Risk - Problem List & Annotations (1) Anxiety SNOMED Code(s): 15440546 Code(s): F41.9 - ANXIETY DISORDER, UNSPECIFIED Status: Acute Current Visit: Yes (2) Chronic back pain SNOMED Code(s): 173750931 Code(s): M54.9 - DORSALGIA, UNSPECIFIED; G89.29 - OTHER CHRONIC PAIN Status: Acute Current Visit: Yes (3) Closed head injury SNOMED Code(s): 044691566270 Code(s): S09.90XA - UNSPECIFIED INJURY OF HEAD, INITIAL ENCOUNTER Status: Acute Current Visit: Yes (4) Elevated troponin SNOMED Code(s): 707840124, 879885182, 002376109 Code(s): R79.89 - OTHER SPECIFIED ABNORMAL FINDINGS OF BLOOD CHEMISTRY Status: Acute Current Visit: Yes (5) Failure to thrive in adult SNOMED Code(s): 212880944 Code(s): R62.7 - ADULT FAILURE TO THRIVE Status: Acute Current Visit: Yes (6) Fall SNOMED Code(s): 3754758, 301546831 Code(s): W19.XXXA - UNSPECIFIED FALL, INITIAL ENCOUNTER Status: Acute Current Visit: Yes Qualifiers: Encounter type: initial encounter Qualified Code(s): W19.XXXA - Unspecified fall, initial encounter (7) Generalized weakness SNOMED Code(s): 51030306 Code(s): R53.1 - WEAKNESS Status: Acute Current Visit: Yes (8) Hypertension SNOMED Code(s): 96515343 Code(s): I10 - ESSENTIAL (PRIMARY) HYPERTENSION Status: Acute Current Visit: Yes (9) Hypokalemia SNOMED Code(s): 22888816 Code(s): E87.6 - HYPOKALEMIA Status: Acute Current Visit: Yes (10) Hypomagnesemia SNOMED Code(s): 170004306 Code(s): E83.42 - HYPOMAGNESEMIA Status: Acute Current Visit: Yes (11) Hypophosphatemia SNOMED Code(s): 8201519 Code(s): E83.39 - OTHER DISORDERS OF PHOSPHORUS METABOLISM Status: Acute Current Visit: Yes (12) Multiple abrasions SNOMED Code(s): 185925987, 409061671 Code(s): T07.XXXA - UNSPECIFIED MULTIPLE INJURIES, INITIAL ENCOUNTER Status: Acute Current Visit: Yes (13) Thrombocytopenia SNOMED Code(s): 555257871 Code(s): D69.6 - THROMBOCYTOPENIA, UNSPECIFIED Status: Acute Current Visit: Yes (14) Compression fracture of body of thoracic vertebra SNOMED Code(s): 966880645 Code(s): M48.54XA - COLLAPSED VERTEBRA, NEC, THORACIC REGION, INIT Status: Acute Current Visit: No (15) Degenerative joint disease (DJD) of hip SNOMED Code(s): 542878841 Code(s): M16.9 - OSTEOARTHRITIS OF HIP, UNSPECIFIED Status: Acute Current Visit: No (16) Low back pain SNOMED Code(s): 581088680 Code(s): M54.5 - LOW BACK PAIN Status: Acute Current Visit: No (17) Lab test negative for COVID-19 virus SNOMED Code(s): 847438906, 284370054 Code(s): Z03.818 - ENCNTR FOR OBS FOR SUSP EXPSR TO OTH BIOLG AGENTS RULED OUT Status: Acute Current Visit: Yes - Problem List Review Problem List Initiated/Reviewed/Updated: Yes - Assessment Assessment:: Admission Patient was found on the ground at her home for unknown time but up to 24 hours. Patient has known difficulty with ambulation and getting around at home She has weakness on exam Creatinine kinase 2357 Troponin 0 0.191 and 0.195 - No significant ST-T wave changes on EKG - Likely secondary to prolonged immobilization and strain Urine negative for myoglobin Received 1 L saline in the emergency department Blood pressure on admission 136/73 04/11/2020 Platelets decreased to 16,000 today - No active bleeding. - Platelets on September 2019 was 28,000 and November 2019 39,000 - Recheck confirmed Physical therapy recommending SNF discharge CK 1,995 Troponin stable GFR improved Labs - Magnesium 1.7 - Phosphorus 2.0 04/12/2020 Fell out of bed - CT of the head and facial bones showed no intracranial bleed or fracture Platelets down to 15,000 today - No active bleeding even after falling out of bed - Spoke with Dr. Jose Casanova nurse intern and oncologist at [facility] who recommended giving 1 unit of packed red blood cells and rechecking platelets 30 to 45 minutes after to make sure platelets increase appropriately. He also recommended abdominal ultrasound which found a cystic structure within the lower pole of the left kidney measuring 3.9 cm. - Dr. Buenrostro recommends MRI to determine if the cyst malignant. - Fibrin degradation products done today and were elevated. This raises the possibility of chronic DIC. RITA resolved CK down to 697 04/13/2020 Family refusing work up for renal cyst Speech evaluation today Accepted at [facility] Plt 50 down to 26 K 3.4 to 3.2 Applied to [place] 04/14/2020 COVID negative Plt up to 31 Hypokalemia resolved Plan for discharge tomorrow at 11:30AM 04/15/2020 Start Senna BID Repeat COVID will be needed on saturday Applications for [facility] sent Dietary started on Ensure and high protein custard, tolerating well Working with PT - Plan Plan:: Closed head injury 2/2 fall out of bed Failure to thrive Generalized weakness - Continue PT/OT - Follow wound care instructions - Do not leave covered for more that 4 hours at a time. - Change dressing frequently. - Keep as dry as possible. Chronic thrombocytopenia, stable - Monitor for bleeding - Repeat labs prior to discharge Hypertension, stable - Monitor blood pressure - Continue home Meds Arthritis Chronic back pain Migraines Anxiety Eczema - Home medications as directed Cystic structure within left kidney measuring 3.9 cm - Inactive * Family considering further evaluation of cystic structure if she stabilizes. * Family refusing follow-up MRI * Continue to monitor * Supplement as needed * Resolved Rhabdomyolysis secondary to immobilization from lying on the floor for unknown time Acute kidney injury Hypomagnesemia/hypophosphatemia/Hypokalemia PROPHYLAXIS DVT- chemoprophylaxis contraindicated secondary to thrombocytopenia GI- not indicated CODE STATUS: DNR/DNI DISPOSITION: admitted to medical floor. Has been accepted to [facility]. Difficulty obtaining placement due to mass COVID testing at [facility]. Looking into placement at [facility] and [facility] still. Both facilities will be unable to accept patient until Saturday. Will need repeat COVID-19 test on 04/17/20 for SNF admission. LOS >96 HRs due to placement difficulty.
[2020-04-17] MEDS: Bacitracin/Neomycin/Polymyxin B Oint 15 GM Tube TOP SCH ×3 (08:54→20:02)
[2020-04-17] MEDS: amLODIPine 5 MG Tab PO SCH (08:54)
[2020-04-17] MEDS: Gabapentin 300 MG Cap PO SCH ×3 (08:54→20:01)
[2020-04-17] MEDS: Sennosides 8.6 MG Tab PO SCH ×2 (08:54→20:01)
--- NOTE | 2020-04-17 09:15 | PCM.PN ---
- General Info Date of Service: 04/17/20 Subjective Update: Slept well Tolerating diet Stating that she is having worsening back pain, I offered up to chair option but she declined stating she was scared - Patient Data Weight - Most Recent: 53.887 kg - Exam General: Alert, Oriented, Cooperative, Mild Distress HEENT: Pupils Equal, Pupils Reactive, Mucous Membr. Moist/[place] Neck: Supple, Trachea Midline, No JVD Lungs: Decreased Breath Sounds, Crackles. No: Rales, Rhonchi, Rub, Stridor, Wheezing Cardiovascular: Regular Rate, Regular Rhythm. No: Murmurs, Gallops, Rubs GI/Abdominal Exam: Normal Bowel Sounds, Soft, Non-Tender. No: Distended, Guarding, Rigid, Rebound Extremities: Other (ecchymotic lesions with adequate healing, excoriation over left shoulder has improved and less painful) Peripheral Pulses: 2+: Radial (L), Radial (R), Dorsalis Pedis (L), Dorsalis Pedis (R) Skin: Cool, Ecchymosis (with appropriate resolution, no hematomas are palpated), Other (excoriation on chin no longer has the scab and lookg almost resolved, sh oulder one improving but not resolved) Neurological: No New Focal Deficit Psy/Mental Status: Alert Sepsis Event Note - Evaluation Sepsis Screening Result: No Definite Risk - Problem List & Annotations (1) Anxiety SNOMED Code(s): 44548110 Code(s): F41.9 - ANXIETY DISORDER, UNSPECIFIED Status: Acute Current Visit: Yes (2) Chronic back pain SNOMED Code(s): 919565347 Code(s): M54.9 - DORSALGIA, UNSPECIFIED; G89.29 - OTHER CHRONIC PAIN Status: Acute Current Visit: Yes (3) Closed head injury SNOMED Code(s): 484113353983 Code(s): S09.90XA - UNSPECIFIED INJURY OF HEAD, INITIAL ENCOUNTER Status: Acute Current Visit: Yes (4) Elevated troponin SNOMED Code(s): 785328755, 669108011, 358415662 Code(s): R79.89 - OTHER SPECIFIED ABNORMAL FINDINGS OF BLOOD CHEMISTRY Status: Acute Current Visit: Yes (5) Failure to thrive in adult SNOMED Code(s): 375347667 Code(s): R62.7 - ADULT FAILURE TO THRIVE Status: Acute Current Visit: Yes (6) Fall SNOMED Code(s): 6119395, 980871674 Code(s): W19.XXXA - UNSPECIFIED FALL, INITIAL ENCOUNTER Status: Acute Current Visit: Yes Qualifiers: Encounter type: initial encounter Qualified Code(s): W19.XXXA - Unspecified fall, initial encounter (7) Generalized weakness SNOMED Code(s): 62747545 Code(s): R53.1 - WEAKNESS Status: Acute Current Visit: Yes (8) Hypertension SNOMED Code(s): 99486747 Code(s): I10 - ESSENTIAL (PRIMARY) HYPERTENSION Status: Acute Current Visit: Yes (9) Hypokalemia SNOMED Code(s): 56006431 Code(s): E87.6 - HYPOKALEMIA Status: Acute Current Visit: Yes (10) Hypomagnesemia SNOMED Code(s): 714418547 Code(s): E83.42 - HYPOMAGNESEMIA Status: Acute Current Visit: Yes (11) Hypophosphatemia SNOMED Code(s): 0930496 Code(s): E83.39 - OTHER DISORDERS OF PHOSPHORUS METABOLISM Status: Acute Current Visit: Yes (12) Multiple abrasions SNOMED Code(s): 359084567, 858035720 Code(s): T07.XXXA - UNSPECIFIED MULTIPLE INJURIES, INITIAL ENCOUNTER Status: Acute Current Visit: Yes (13) Thrombocytopenia SNOMED Code(s): 223600741 Code(s): D69.6 - THROMBOCYTOPENIA, UNSPECIFIED Status: Acute Current Visit: Yes (14) Compression fracture of body of thoracic vertebra SNOMED Code(s): 423404129 Code(s): M48.54XA - COLLAPSED VERTEBRA, NEC, THORACIC REGION, INIT Status: Acute Current Visit: No (15) Degenerative joint disease (DJD) of hip SNOMED Code(s): 849201612 Code(s): M16.9 - OSTEOARTHRITIS OF HIP, UNSPECIFIED Status: Acute Current Visit: No (16) Low back pain SNOMED Code(s): 885779311 Code(s): M54.5 - LOW BACK PAIN Status: Acute Current Visit: No (17) Lab test negative for COVID-19 virus SNOMED Code(s): 251910924, 445268603 Code(s): Z03.818 - ENCNTR FOR OBS FOR SUSP EXPSR TO OT BIOLG AGENTS RULED OUT Status: Acute Current Visit: Yes - Problem List Review Problem List Initiated/Reviewed/Updated: Yes - Assessment Assessment:: Admission Patient was found on the ground at her home for unknown time but up to 24 hours. Patient has known difficulty with ambulation and getting around at home She has weakness on exam Creatinine kinase 2357 Troponin 0 0.191 and 0.195 - No significant ST-T wave changes on EKG - Likely secondary to prolonged immobilization and strain Urine negative for myoglobin Received 1 L saline in the emergency department Blood pressure on admission 136/73 04/11/2020 Platelets decreased to 16,000 today - No active bleeding. - Platelets on September 2019 was 28,000 and November 2019 39,000 - Recheck confirmed Physical therapy recommending SNF discharge CK 1,995 Troponin stable GFR improved Labs - Magnesium 1.7 - Phosphorus 2.0 04/12/2020 Fell out of bed - CT of the head and facial bones showed no intracranial bleed or fracture Platelets down to 15,000 today - No active bleeding even after falling out of bed - Spoke with Dr. Jose Casanova gold and silver assayer and oncologist at [facility] who recommended giving 1 unit of packed red blood cells and rechecking platelets 30 to 45 minutes after to make sure platelets increase appropriately. He also recommended abdominal ultrasound which found a cystic structure within the lower pole of the left kidney measuring 3.9 cm. - Dr. Buenrostro recommends MRI to determine if the cyst malignant. - Fibrin degradation products done today and were elevated. This raises the possibility of chronic DIC. RITA resolved CK down to 697 04/13/2020 Family refusing work up for renal cyst Speech evaluation today Accepted at [facility] 50 down to 26 K 3.4 to 3.2 Applied to [facility] today 04/14/2020 COVID negative Plt up to 31 Hypokalemia resolved Plan for discharge tomorrow at 11:30AM 04/15/2020 Start Senna BID Repeat COVID will be needed on saturday Applications for [facility] sent Dietary started on Ensure and high protein custard, tolerating well Working with PT Keep excoriations dry, wound care to be changed every 4 hours 04/16/2020 Blood pressure stable No fevers Wounds are healing appropriately - Plan Plan:: Closed head injury 2/2 fall out of bed Failure to thrive Generalized weakness - Continue PT/OT - Follow wound care instructions - Do not leave covered for more that 4 hours at a time. - Change dressing frequently. - Keep as dry as possible. Chronic thrombocytopenia, stable - Monitor for bleeding - Repeat labs prior to discharge Hypertension, stable - Monitor blood pressure - Continue home Meds Arthritis Chronic back pain Migraines Anxiety Eczema - Home medications as directed Cystic structure within left kidney measuring 3.9 cm No work-up as per family Resolved Rhabdomyolysis secondary to immobilization from lying on the floor for unknown time Acute kidney injury Hypomagnesemia/hypophosphatemia/Hypokalemia PROPHYLAXIS DVT- chemoprophylaxis contraindicated secondary to thrombocytopenia GI- not indicated CODE STATUS: DNR/DNI DISPOSITION: Has been accepted to [facility]. Difficulty obtaining placement due to mass COVID testing at [facility]. Looking into placement at [facility] and [facility] still. Both facilities will be unable to accept patient until Saturday. Repeat COVID sent today. LOS >96 HRs due to placement difficulty.
[2020-04-17] MEDS: Acetaminophen 325 MG Tab PO PRN (20:01)
[2020-04-18] MEDS: Gabapentin 300 MG Cap PO SCH (08:57)
[2020-04-18] MEDS: Bacitracin/Neomycin/Polymyxin B Oint 15 GM Tube TOP SCH (08:57)
[2020-04-18] MEDS: Sennosides 8.6 MG Tab PO SCH (08:58)
[2020-04-18] MEDS: amLODIPine 5 MG Tab PO SCH (08:58)
[2020-04-18 08:59] VITALS: BP 115/55
--- NOTE | 2020-04-18 10:04 | PCM.DCSUM1 ---
Discharge Summary - Hospital Course HPI Initial Comments: 89-year-old female who lives alone was found by a neighbor lying face down the floor this morning. Patient is a poor historian and family was not available when I interviewed the patient so most of the history was obtained through the emergency department physician, nursing, and the patient. Patient's last known well was at 9:30 AM yesterday morning. Patient states that she slid off of her recliner and did not actually fall. Her face/chin, left shoulder, knees, and buttocks had abrasions and bruising to her left wrist. Patient tells me she has no pain at this time. She was brought into the EMS after her neighbor called 911. On arrival to the emergency department oxygen saturations were 96%, and she denied hitting her head. Patient had a CT scan of her head and chest x-ray which were both without acute findings. Daughter does state that she has some limitations in her memory and recall. Patient denies any fever, chills, chest pain, shortness of breath, nausea, or vomiting. In the emergency department vital signs were relatively normal with a blood pressure of 136/73, pulse of 98, temperature 98.3, respiratory rate of 18, pulse ox of 98%. Patient was found to have abrasions to her chin and generalized weakness and possible mild weakness to her left arm and leg. A stroke alert was called. EKG showed normal sinus rhythm with ventricular rate of 91 bpm with no significant abnormalities. Labs in the emergency department: White count 20.55 with 87.6% neutrophils and no bands, peripheral smear showed normal red blood cells with leukocytosis and low platelets, hemoglobin 13.4, platelet count 47. Sodium was 143, potassium of 3.8, anion gap 17.8, BUN 26, creatinine 1.5 with estimated GFR 33. Initial troponin was 0.191 with a repeat of 0.195. AST was 85, ALT 43, alkaline phosphatase 88. CK 2357, UA negative occult blood and no red blood cells. Negative WBC. COVID negative. Patient was given 1 L of normal saline then transferred to the floor. Diagnosis: Stroke: No - Discharge Data Discharge Date: 04/18/20 (Admit date: 04/10/20) Discharge Disposition: DC/Tfer to SNF 03 Condition: Good - Referral to Home Health Primary Care Physician: PCP Not In Area - Discharge Diagnosis/Problem(s) (1) Thrombocytopenia SNOMED Code(s): 773347018 ICD Code: D69.6 - THROMBOCYTOPENIA, UNSPECIFIED Status: Acute Priority: High (2) Closed head injury SNOMED Code(s): 055446978990 ICD Code: S09.90XA - UNSPECIFIED INJURY OF HEAD, INITIAL ENCOUNTER Status: Acute Priority: High (3) Hypomagnesemia SNOMED Code(s): 632292024 ICD Code: E83.42 - HYPOMAGNESEMIA Status: Resolved Priority: High (4) Hypophosphatemia SNOMED Code(s): 5285979 ICD Code: E83.39 - OTHER DISORDERS OF PHOSPHORUS METABOLISM Status: Resolved Priority: High (5) Hypokalemia SNOMED Code(s): 29754275 ICD Code: E87.6 - HYPOKALEMIA Status: Resolved Priority: High (6) Elevated troponin SNOMED Code(s): 539491869, 250719795, 006349780 ICD Code: R79.89 - OTHER SPECIFIED ABNORMAL FINDINGS OF BLOOD CHEMISTRY Status: Inactive Priority: High (7) Failure to thrive in adult SNOMED Code(s): 737279618 ICD Code: R62.7 - ADULT FAILURE TO THRIVE Status: Acute Priority: High (8) Fall SNOMED Code(s): 2946163, 865942026 ICD Code: W19.XXXA - UNSPECIFIED FALL, INITIAL ENCOUNTER Status: Acute Priority: High Qualifiers: Encounter type: initial encounter Qualified Code(s): W19.XXXA - Unspecified fall, initial encounter (9) Generalized weakness SNOMED Code(s): 22026111 ICD Code: R53.1 - WEAKNESS Status: Acute Priority: High (10) Multiple abrasions SNOMED Code(s): 641184477, 165792741 ICD Code: T07.XXXA - UNSPECIFIED MULTIPLE INJURIES, INITIAL ENCOUNTER Status: Acute Priority: High (11) Rhabdomyolysis SNOMED Code(s): 076766542 ICD Code: M62.82 - RHABDOMYOLYSIS Status: Resolved Priority: High Qualifiers: Rhabdomyolysis type: traumatic Encounter type: initial encounter Qualified Code(s): T79.6XXA - Traumatic ischemia of muscle, initial encounter (12) Hypertension SNOMED Code(s): 40232381 ICD Code: I10 - ESSENTIAL (PRIMARY) HYPERTENSION Status: Chronic Priority: Low Qualifiers: Hypertension type: unspecified Qualified Code(s): I10 - Essential (primary) hypertension (13) Arthritis SNOMED Code(s): 5725948 ICD Code: M19.90 - UNSPECIFIED OSTEOARTHRITIS, UNSPECIFIED SITE Status: Acute Priority: Low (14) Chronic back pain SNOMED Code(s): 338703866 ICD Code: M54.9 - DORSALGIA, UNSPECIFIED; G89.29 - OTHER CHRONIC PAIN Status: Chronic Priority: Medium Qualifiers: Back pain location: back pain in unspecified location Back pain laterality: unspecified Qualified Code(s): M54.9 - Dorsalgia, unspecified; G89.29 - Other chronic pain (15) Migraines SNOMED Code(s): 51836541 ICD Code: G43.909 - MIGRAINE, UNSP, NOT INTRACTABLE, WITHOUT STATUS MIGRAINOSUS Status: Chronic Priority: Low Qualifiers: Migraine type: unspecified Status migrainosus presence: without status migrainosus Intractability: not intractable Qualified Code(s): G43.909 - Migraine, unspecified, not intractable, without status migrainosus (16) Anxiety SNOMED Code(s): 13560936 ICD Code: F41.9 - ANXIETY DISORDER, UNSPECIFIED Status: Chronic Priority: Low (17) Eczema SNOMED Code(s): 46650356 ICD Code: L30.9 - DERMATITIS, UNSPECIFIED Status: Chronic Priority: Low Qualifiers: Eczema type: unspecified Qualified Code(s): L30.9 - Dermatitis, unspecified - Patient Summary/Data Consults: Consultations 04/10/20 17:35 OT Evaluation and Treatment [CONS] Routine PT Evaluation and Treatment [CONS] Routine 04/12/20 17:20 Consult to Speech Language Pathology [ARBORIST Evaluation and Treatment] [CONS] Routine 04/13/20 07:32 Consult to Case Management/Mutuel Clerk [CONS] Routine Labs Pending at D/C: None Recommended Follow-up Testing/Procedures: Follow-up with PCP within 7-10 days of discharge, sooner if needed -Recommend recheck CBC, CMP, Magnesium, and Phosphorous at that appointment Hospital Course: Renetta was admitted to the hospital floor due to failure to thrive and frequent falls at home. She was noted to have rhabdomyolysis on admission with a CK of 2357 after laying on the ground for an unknown amount of time. IV fluids were given and her CK did return to normal. GFR was noted to be 33 on admission and this responded to IV fuids as well, returning to normal. Her troponin was mildly elevated at 0.191-->0.195-->0.222-->0.191 but there were no EKG changes and no reports of chest pain. It is believed this was due to strain from her rhabdomyolysis. She was noted to have generalized weakness which has been worsening. B12 was elevated at 1987. Her B12 supplementation was subsequently held. TSH was high at 6.732 but T4 was normal at 0.86. She did work with PT/OT who are recommending SNF placement. While here patient did have a fall in her room and was found facedown by staff. CT scan was obtained and was negative. As result of this fall patient was noted to have significant bruising to her face actually around her eyes. She is also noted to have an abrasion on her chin and left shoulder. Head CT scan was obtained and was negative. Patient also had bruising on all extremities and abrasions bilaterally on her knees. Upon discharge all bruising was noted to be improving and abrasions were healing. There were no signs of any infection. Labs here showed chronic thrombocytopenia. Dr. Jose Casanova, Heme/Oncology with [facility] was contacted who recommended 1 unit of platelets and rechecking labs. He also recommended an abdominal ultrasound. US was obtained showing a cystic structure within the lower pole left kidney measuring 3.9 cm. Also a slightly dilated right renal pelvis believed to represent a normal variant was noted. No additional abnormality was definitely appreciated. The pancreas was unable to be visualized. Her Buenrostro, radiologist recommended a MRI to determine if the cyst is malignant. Family ultimately refused this test and refused further work-up. Platelet trend of 47-->16-->19-->15-->50 (s/p one unit of platelets)-->26-->31-->43 was noted during her admission. Platelets on September 2019 were 28,000 and November 2019 were 39,000. Fibrin degradation products were done and were elevated, raising the possibility of chronic DIC. Potassium, magnesium, and phosphorus were all noted to be low during her stay and these were supplemented. She was noted to have mild constipation was started on senna twice daily. This will be continued after discharge daily. COVID-19 testing was obtained twice as a requirement of SNF placement and not because of any concerns over symptoms. These were both negative. She was [facility] today. She should continue PT/OT while there. She was receiving nutritional supplementation while here. He was writing prescriptions for as needed all for pain, daily senna for constipation, and twice daily Neosporin oin tment, which should be applied to her abrasions. She should follow-up with her primary care provider within 7 to 10 days of discharge, sooner if needed. Recommend rechecking a CBC, CMP, mag, phosphorus at that time. Special attention should be paid to the platelets. She was advised to return to the emergency room or contact her primary care provider should symptoms return or worsen. - Patient Instructions Diet: Mechanical Soft Activity: As Tolerated Driving: Do Not Drive Showering/Bathing: May Shower Notify Provider of: Fever, Increased Pain, Nausea and/or Vomiting Other/Special Instructions: Follow-up with primary care provider within 7-10 days of discharge, sooner if needed. Recommend re-check CBC, CMP, Magneisum, Phosphorous at that time. Continue PT/OT at SNF. Resume home medicaitons as d irected. Should symptoms return or worsen, contact primary care provider or return to the ED - Discharge Plan *PRESCRIPTION DRUG MONITORING PROGRAM REVIEWED*: No *COPY OF PRESCRIPTION DRUG MONITORING REPORT IN PATIENT DIMITRIS: No Prescriptions/Med Rec: Bacitracin/Neomycin/Polymyxin [Neosporin Oint] 0 gm TOP BID #3 tube Sennosides [Senna] 8.6 mg PO DAILY #20 tablet Acetaminophen [Tylenol] 650 mg PO Q4H PRN #20 tablet PRN Reason: Pain (Mild 1-3)/fever Home Medications: Home Meds Vitamin E 400 units PO DAILY 09/18/15 [History] Gabapentin [Neurontin] 300 mg PO TID 04/10/20 [History] Lysine HCl [l-Lysine] mg PO DAILY 04/10/20 [History] Vit A/Vit C/Vit E/Zinc/Copper [Preservision Areds Softgel] 1 cap PO DAILY 04/10/20 [History] amLODIPine [Norvasc] 5 mg PO DAILY 04/10/20 [History] Acetaminophen [Tylenol] 650 mg PO Q4H PRN #20 tablet 04/18/20 [Rx] Bacitracin/Neomycin/Polymyxin [Neosporin Oint] 0 gm TOP BID #3 tube 04/18/20 [Rx] Sennosides [Senna] 8.6 mg PO DAILY #20 tablet 04/18/20 [Rx] Oxygen Therapy Mode: Room Air Patient Handouts: Weakness, [id number], Understanding Your Risk for Falls, Failure to Thrive, Adult, [id number] Forms: ED Department Discharge Referrals: James Rogers MD [Physician] - 04/21/20 1:15 pm (please attend the scheduled follow up appointment as listed) - Discharge Summary/Plan Comment DC Time >30 min.: Yes (45 mins) - General Info Date of Service: 04/18/20 Admission Dx/Problem (Free Text: Admission Diagnosis/Problem Admission Diagnosis/Problem Failure to thrive Functional Status: Reports: Pain Controlled, Tolerating Diet, Ambulating, Urinating. Denies: New Symptoms - Review of Systems General: Reports: Weakness. Denies: Fever, Fatigue, Malaise, Chills HEENT: Reports: Other (Significant burising around bilateral eyes - healing ). Denies: Headaches, Sore Throat Pulmonary: Reports: No Symptoms. Denies: Shortness of Breath, Pleuritic Chest Pain, Cough, Sputum, Wheezing Cardiovascular: Reports: No Symptoms. Denies: Chest Pain, Palpitations, Dyspnea on Exertion Gastrointestinal: Reports: No Symptoms. Denies: Abdominal Pain, Constipation, Diarrhea, Nausea, Vomiting Genitourinary: Reports: No Symptoms. Denies: Pain Musculoskeletal: Reports: Shoulder Pain Skin: Reports: Bruising. Denies: Cyanosis Neurological: Reports: No Symptoms, Difficulty Walking, Weakness, Gait Disturbance. Denies: Confusion Psychiatric: Reports: No Symptoms - Patient Data Vitals - Most Recent: Last Vital Signs Temp 98.1 F 04/17/20 19:29 Pulse 81 04/17/20 19:29 Resp 16 04/17/20 19:29 BP 115/55 L 04/18/20 08:58 Pulse Ox 93 L 04/17/20 19:29 Weight - Most Recent: 117 lb 9.6 oz I&O - Last 24 hours: Intake & Output 04/17/20 04/18/2020 22:59 06:59 14:59 Intake Total 520 400 Balance 520 400 Lab Results - Last 24 hrs: Laboratory Results - last 24 hr 04/18/20 Range/Units 07:25 WBC 9.65 (3.98-10.04) K/mm3 RBC 3.70 L (3.98-5.22) M/mm3 Hgb 10.7 L (11.2-15.7) gm/dl Hct 34.4 (34.1-44.9) % MCV 93.0 (79.4-94.8) fl MCH 28.9 (25.6-32.2) pg MCHC 31.1 L (32.2-35.5) g/dl RDW Std Deviation 48.7 H (36.4-46.3) fL Plt Count 43 L (182-369) K/mm3 MPV TNP Neut % (Auto) 59.4 (34.0-71.1) % Lymph % (Auto) 20.3 (19.3-51.7) % [place] % (Auto) 14.7 H (4.7-12.5) % Eos % (Auto) 4.4 (0.7-5.8) Baso % (Auto) 0.3 (0.1-1.2) % Neut # (Auto) 5.73 (1.56-6.13) K/mm3 Lymph # (Auto) 1.96 (1.18-3.74) K/mm3 [place] # (Auto) 1.42 H (0.24-0.36) K/mm3 Eos # (Auto) 0.42 H (0.04-0.36) K/mm3 Baso # (Auto) 0.03 (0.01-0.08) K/mm3 Manual Slide Review Abnormal smear Med Orders - Current: Current Medications Acetaminophen (Tylenol) 650 mg PO Q4H PRN PRN Reason: Pain (Mild 1-3)/fever Last Admin: 04/17/20 20:01 Dose: 650 mg Documented by: Amlodipine Besylate (Norvasc) 5 mg PO DAILY MELANIA Last Admin: 04/18/20 08:58 Dose: 5 mg Documented by: Artificial Tears (Refresh Liquigel 1%) 0 ml EYEBOTH ASDIRECTED PRN PRN Reason: Dry Eyes Gabapentin (Neurontin) 300 mg PO TID [facility] Last Admin: 04/18/20 08:57 Dose: 300 mg Documented by: Neomycin/Polymyxin/Bacitracin (Neosporin Oint) 0 gm TOP BID [facility] Last Admin: 04/18/20 08:57 Dose: 1 applic Documented by: Ondansetron HCl (Zofran) 4 mg IV Q4H PRN PRN Reason: Nausea/Vomiting Senna (Senna) 8.6 mg PO BID [facility] Last Admin: 04/18/20 08:58 Dose: 8.6 mg Documented by: Sodium Chloride (Saline Flush) 10 ml FLUSH ASDIRECTED PRN PRN Reason: Keep Vein Open Last Admin: 04/10/20 11:08 Dose: 10 ml Documented by: Discontinued Medications Cyanocobalamin (Vitamin B12) 1,000 mcg PO DAILY [facility] Last Admin: 04/12/20 08:46 Dose: 1,000 mcg Documented by: Sodium Chloride (Normal Saline) 1,000 mls @ 1,000 mls/hr IV .BOLUS [facility] Last Infusion: 04/10/20 12:08 Dose: Infused Documented by: Sodium Chloride (Normal Saline) 1,000 mls @ 100 mls/hr IV ASDIRECTED [facility] Last Admin: 04/12/20 00:47 Dose: 100 mls/hr Documented by: Magnesium Sulfate 2 gm/ Premix 50 mls @ 25 mls/hr IV ONETIME ONE Stop: 04/11/20 12:29 Last Admin: 04/11/20 10:55 Dose: 25 mls/hr Documented by: Sodium Chloride (Normal Saline) 250 mls @ 50 mls/hr IV ASDIRECTED [facility] Stop: 04/12/20 18:00 Last Admin: 04/12/20 13:22 Dose: 50 mls/hr Documented by: Potassium Phosphate 30 mmole/ (Sodium Chloride) 510 mls @ 102 mls/hr IV ONETIME ONE Stop: 04/13/20 13:59 Last Admin: 04/13/20 09:18 Dose: 102 mls/hr Documented by: Potassium Chloride (Klor-Con M20) 40 meq PO ONETIME ONE Stop: 04/11/20 07:40 Last Admin: 04/11/20 08:40 Dose: 40 meq Documented by: Potassium Chloride (Klor-Con M20) 20 meq PO ONETIME ONE Stop: 04/12/20 07:57 Last Admin: 04/12/20 08:47 Dose: 20 meq Documented by: Senna/Docusate Sodium (Senna Plus) 1 tab PO BID PRN PRN Reason: Constipation Last Admin: 04/12/20 05:47 Dose: 1 tab Documented by: - Exam Quality Assessment: Reports: DVT Prophylaxis General: Reports: Alert, Oriented, Cooperative, No Acute Distress HEENT: Reports: Pupils Equal, Pupils Reactive, Mucous Membr. Moist/[place] Neck: Reports: Supple, Trachea Midline Lungs: Reports: Clear to Auscultation, Normal Respiratory Effort Cardiovascular: Reports: Regular Rate, Regular Rhythm GI/Abdominal Exam: Normal Bowel Sounds, Soft, Non-Tender, No Organomegaly, No Distention (Female) Exam: Deferred Rectal (Female) Exam: Deferred Back Exam: Reports: Normal Inspection, Decreased Range of Motion Extremities: Non-Tender, No Pedal Edema, Normal Capillary Refill, Limited Range of Motion, Other (Scattered bruising to all extremities - most prominent on bilateral hands. Abrasion noted to bilateral knees. Abrasion noted on left shoulder 2/2 fall. All abrasions are healing and show no signs of infection. ) Skin: Reports: Warm, Dry, Intact, Ecchymosis (Scattered ) Wound/Incisions: Reports: Healing Well. Denies: Erythema Neurological: Reports: No New Focal Deficit Psy/Mental Status: Reports: Alert, Normal Affect, Normal Mood
[2020-04-18 12:09] VITALS: PULSE 80
== END 2020-04-18 13:02 | DRG 565 ==
LOC: JD.ED 10:11 → JD.MS 15:37
PROVIDERS: ADMIT Family Medicine; ATTEND Family Medicine
DX: T79.6XXA Traumatic ischemia of muscle, initial encounter (principal); N17.9 Acute kidney failure, unspecified; M48.54XA Collapsed vertebra, not elsewhere classified, thoracic region, initial encounter for fracture; R62.7 Adult failure to thrive; D69.6 Thrombocytopenia, unspecified; R79.89 Other specified abnormal findings of blood chemistry; I10 Essential (primary) hypertension; G89.29 Other chronic pain; M54.9 Dorsalgia, unspecified; Z66 Do not resuscitate; S00.81XA Abrasion of other part of head, initial encounter; S40.212A Abrasion of left shoulder, initial encounter; S80.212A Abrasion, left knee, initial encounter; S80.211A Abrasion, right knee, initial encounter; S30.810A Abrasion of lower back and pelvis, initial encounter; W19.XXXA Unspecified fall, initial encounter; Z88.6 Allergy status to analgesic agent; Z79.82 Long term (current) use of aspirin; Z79.899 Other long term (current) drug therapy; H54.7 Unspecified visual loss; H91.90 Unspecified hearing loss, unspecified ear; H35.30 Unspecified macular degeneration; F41.9 Anxiety disorder, unspecified; L30.9 Dermatitis, unspecified; Z98.49 Cataract extraction status, unspecified eye; Z90.710 Acquired absence of both cervix and uterus; Z20.828 Contact with and (suspected) exposure to other viral communicable diseases; E83.42 Hypomagnesemia; E83.39 Other disorders of phosphorus metabolism; W06.XXXA Fall from bed, initial encounter; Y92.230 Patient room in hospital as the place of occurrence of the external cause; S09.90XA Unspecified injury of head, initial encounter; E87.6 Hypokalemia; R53.1 Weakness; G43.909 Migraine, unspecified, not intractable, without status migrainosus; N28.1 Cyst of kidney, acquired; M16.9 Osteoarthritis of hip, unspecified; Z68.24 Body mass index [BMI] 24.0-24.9, adult
CPT/HCPCS: 36415; 70450; 71045; 80053; 81001; 82550; 82962; 83615; 84484 ×2; 85025; 85379; 85384; 85610; 85730; 93005; 96360; 99285; J7030; U0002; 36430; 70486; 70486-26; 76700; 76700-26; 80048; 82607; 82746; 83735; 84100; 84439; 84443; 85007; 85027; 85362; 86038; 86803; 86900; 86901; 92610-GN; 97110-GO; 97110-GP; 97162-GP; 97167-GO; 97530-GO; 97530-GP; A9270-GY; J3475; J3490; J7040; J7050; P9034